=== PATIENT | male | born 1985 | race African-American/Black ===

== ENCOUNTER 2017-11-04 22:24 | Emergency (ER) | payer SELFPAY ==
[2017-11-04] MEDS ORDERED: LISINOPRIL 10 MG TAB ONE (23:13)
--- NOTE | 2017-11-04 23:45 | ER ---
Nurse's Notes [facility] Name: Alexy Rosales Jr Age: 32 yrs Sex: Male : 1985 Arrival Date: 11/04/2017 Time: 22:26 Bed 6 Private MD: Diagnosis: Cough;Subconjunctival hemorrhage;Essential (primary) hypertension Presentation: 11/04 22:36 Presenting complaint: Patient states: he has had a subconjunctival hemorrhage to R eye aa1 x 2 days and was told by someone it was probably from high BP. States he has a hx of HTN and was on medicine but stopped taking it 4 months ago bc he thought he no longer needed it. Transition of care: patient was not received from another setting of care. Onset of symptoms was November 02, 2017. Initial Sepsis Screen: Does the patient meet any 2 criteria? No. Patient's initial sepsis screen is negative. Does the patient have a suspected source of infection? No. Patient's initial sepsis screen is negative. Care prior to arrival: None. 22:36 Method Of Arrival: Ambulatory aa1 22:36 Acuity: SUE 3 aa1 Historical: - Allergies: 22:39 No Known Allergies; aa1 - Home Meds: 22:39 None [Active]; aa1 - PMHx: 22:39 Migraines; Hypertension; vertigo; aa1 - PSHx: 22:39 spinal; aa1 - Immunization history:: Flu vaccine is not up to date. Patient has never been vaccinated. - Social history:: Smoking status: Patient/guardian denies using tobacco. Screenin:30 Abuse screen: Denies threats or abuse. Denies injuries from another. Nutritional aa1 screening: No deficits noted. Tuberculosis screening: No symptoms or risk factors identified. Fall Risk None identified. Assessment: 22:30 General: Appears in no apparent distress. comfortable, obese, Behavior is calm, aa1 cooperative, appropriate for age. Pain: Complains of pain in right eye Pain currently is 6 out of 10 on a pain scale. Neuro: Level of Consciousness is awake, alert, obeys commands, Oriented to person, place, time, situation, Gait is steady, Speech is normal, Facial symmetry appears normal, Pupils are PERRLA, Reports headache. Cardiovascular: Denies chest pain, palpitations, shortness of breath. Respiratory: Airway is patent Respiratory effort is even, unlabored, Respiratory pattern is regular, symmetrical. GI: No signs and/or symptoms were reported involving the gastrointestinal system. : No signs and/or symptoms were reported regarding the genitourinary system. EENT: subconjunctival hemorrhage noted to R eye. Derm: Skin is intact, is healthy with good turgor, Skin is pink, warm \T\ dry. Musculoskeletal: Circulation, motion, and sensation intact. Capillary refill < 3 seconds. 11/05 00:19 Reassessment: Patient appears in no apparent distress at this time. Patient and/or aa1 family updated on plan of care and expected duration. Pain level reassessed. Patient is alert, oriented x 3, equal unlabored respirations, skin warm/dry/pink. Awaiting CT scan and lab results Patient states feeling better. 01:29 Reassessment: Patient appears in no apparent distress at this time. Patient and/or aa1 family updated on plan of care and expected duration. Pain level reassessed. Patient is alert, oriented x 3, equal unlabored respirations, skin warm/dry/pink. Pt taken to CT. 02:53 Reassessment: Patient appears in no apparent distress at this time. Patient is alert, aa1 oriented x 3, equal unlabored respirations, skin warm/dry/pink. Discussed d/c \T\ f/u instructions with pt; denies questions or concerns at this time. Vital Signs: 11/04 22:39 BP 181 / 117; Pulse 106; Resp 18; Temp 97.8; Pulse Ox 98% on R/A; Weight 131.54 kg; aa1 Height 5 ft. 1 in. (154.94 cm); Pain 6/10; 23:36 BP 149 / 99; Pulse 103; Resp 18; Pulse Ox 98% on R/A; lp1 11/05 00:18 BP 146 / 104; Pulse 97; Resp 18; Temp 97.8; Pulse Ox 98% on R/A; aa1 01:45 BP 156 / 100; Pulse 94; Resp 18; Pulse Ox 99% on R/A; aa1 02:53 BP 149 / 99; Pulse 94; Resp 18; Pulse Ox 99% on R/A; Pain 0/10; aa1 11/04 22:39 Body Mass Index 54.79 (131.54 kg, 154.94 cm) aa1 ED Course: 11/04 22:26 Patient arrived in ED. ds1 22:30 Patient has correct armband on for positive identification. Bed in low position. Call aa1 light in reach. Pulse ox on. NIBP on. 22:33 Laure Chahal FNP-C is PHCP. snw 22:33 Roberto Carlos Davis MD is Attending Physician. snw 22:36 Haylee Todd RN is Primary Nurse. aa1 22:38 Triage completed. aa1 22:39 Arm band placed on left wrist. Patient placed in an exam room, on a stretcher. aa1 23:14 X-ray completed. Portable x-ray completed in exam room. Patient tolerated procedure kw well. 23:29 Chest Single View XRAY In Process Unspecified. EDMS 04 00:04 Radiology exam delayed due to lab results not completed at this time. (BUN/Creatinine). cw1 00:19 Inserted saline lock: 20 gauge in right antecubital area, using aseptic technique. mg2 01:45 CT Chest For PE Angio In Process Unspecified. EDMS 02:53 No provider procedures requiring assistance completed. IV discontinued, intact, aa1 bleeding controlled, No redness/swelling at site. Pressure dressing applied. Administered Medications: 11/04 23:17 Drug: Lisinopril 10 mg Route: PO; aa1 11/05 00:08 Follow up: Response: No adverse reaction; Blood pressure is lowered mg2 00:20 Drug: NS 0.9% 1000 ml Route: IV; Rate: 75 ml/hr; Site: right antecubital; mg2 02:55 Follow up: IV Status: Completed infusion aa1 Outcome: 11/04 23:45 Discharge ordered by . snw 11/05 02:37 Discharge ordered by . snw 02:53 Discharged to home ambulatory, with family. aa1 02:53 Condition: good 02:53 Discharge instructions given to patient, family, Instructed on discharge instructions, follow up and referral plans. medication usage, Demonstrated understanding of instructions, follow-up care, medications, Prescriptions given X 2. 02:55 Patient left the ED. aa1 Signatures: Dispatcher [employer] EDMO Haylee Todd RN RN aa1 Laure Chahal FNP-C [employer] MAKING MACHINE OPERATOR-Csnw Joanne Mcallister ds1 Sugar Finn cw1 Serenity Lopez Laura, RN RN lp1 Valentino Ochoa, CARLOS RN mg2
--- NOTE | 2017-11-04 23:45 | EDPHYS ---
Physician Documentation [facility] Name: Alexy Rosales Jr Age: 32 yrs Sex: Male : 1985 Arrival Date: 11/04/2017 Time: 22:26 Bed 6 Private MD: ED Physician Roberto Carlos Davis HPI: 11/05 02:27 This 32 yrs old Black Male presents to ER via Ambulatory with complaints of High Blood snw Pressure. 02:27 The patient has elevated blood pressure and discovered this pt with hx of HTN, took snw Lisinopril for awhile and then thought he was fine without it. No meds x 4 months. Pt states he noted some subconjunctival hemorrhages and was told it was probably from his blood pressure so his family insisted he come be checked.. Onset: The symptoms/episode began/occurred gradually, pt belatedly states that he thought his eyes look that way because he has been coughing since . He has been taking OTC cold medications and this may have contributed somewhat to his HTN. Modifying factors: The symptoms are aggravated by. Associated signs and symptoms: The patient has no apparent associated signs or symptoms. Severity of symptoms: At its worst the blood pressure was 198 mm Hg. Severity of symptoms: At its worst the blood pressure was. It is unknown whether or not the patient has had similar symptoms in the past. The patient has not recently seen a physician. weight gain noted over past months. Historical: - Allergies: 11/04 22:39 No Known Allergies; aa1 - Home Meds: 22:39 None [Active]; aa1 - PMHx: 22:39 Migraines; Hypertension; vertigo; aa1 - PSHx: 22:39 spinal; aa1 - Immunization history:: Flu vaccine is not up to date. Patient has never been vaccinated. - Social history:: Smoking status: Patient/guardian denies using tobacco. ROS: 11/05 02:27 Constitutional: Negative for fever, chills, and weight loss, Eyes: Negative for injury, snw pain, redness, and discharge, subconjunctival hemorrhages ENT: Negative for injury, pain, and discharge, Neck: Negative for injury, pain, and swelling, Cardiovascular: Negative for chest pain, palpitations, and edema, Abdomen/GI: Negative for abdominal pain, nausea, vomiting, diarrhea, and constipation, Back: Negative for injury and pain, : Negative for injury, bleeding, discharge, and swelling, MS/Extremity: Negative for injury and deformity, Skin: Negative for injury, rash, and discoloration, Neuro: Negative for headache, weakness, numbness, tingling, and seizure. Respiratory: Positive for cough, with no reported sputum. Exam: 02:27 Constitutional: This is a well developed, well nourished patient who is awake, alert, snw and in no acute distress. Head/Face: Normocephalic, atraumatic. ENT: Nares patent. No nasal discharge, no septal abnormalities noted. Tympanic membranes are normal and external auditory canals are clear. Oropharynx with no redness, swelling, or masses, exudates, or evidence of obstruction, uvula midline. Mucous membranes moist. Neck: Trachea midline, no thyromegaly or masses palpated, and no cervical lymphadenopathy. Supple, full range of motion without nuchal rigidity, or vertebral point tenderness. No Meningismus. Chest/axilla: Normal chest wall appearance and motion. Nontender with no deformity. No lesions are appreciated. 02:27 Abdomen/GI: Soft, non-tender, with normal bowel sounds. No distension or tympany. No guarding or rebound. No evidence of tenderness throughout. Back: No spinal tenderness. No costovertebral tenderness. Full range of motion. Skin: Warm, dry with normal turgor. Normal color with no rashes, no lesions, and no evidence of cellulitis. MS/ Extremity: Pulses equal, no cyanosis. Neurovascular intact. Full, normal range of motion. Neuro: Awake and alert, GCS 15, oriented to person, place, time, and situation. Cranial nerves II-XII grossly intact. Motor strength 5/5 in all extremities. Sensory grossly intact. Cerebellar exam normal. Normal gait. 02:27 Eyes: Periorbital structures: appear normal, Pupils: no acute changes, Extraocular movements: no acute changes, Conjunctiva: subconjunctival hemorrhage(s), are present in both eyes. 02:27 Cardiovascular: Rate: tachycardic, Rhythm: regular, Heart sounds: normal, Edema: is not appreciated. 02:27 Respiratory: Exam negative for acute changes. Vital Signs: 11/04 22:39 BP 181 / 117; Pulse 106; Resp 18; Temp 97.8; Pulse Ox 98% on R/A; Weight 131.54 kg; aa1 Height 5 ft. 1 in. (154.94 cm); Pain 6/10; 23:36 BP 149 / 99; Pulse 103; Resp 18; Pulse Ox 98% on R/A; lp1 11/05 00:18 BP 146 / 104; Pulse 97; Resp 18; Temp 97.8; Pulse Ox 98% on R/A; aa1 01:45 BP 156 / 100; Pulse 94; Resp 18; Pulse Ox 99% on R/A; aa1 02:53 BP 149 / 99; Pulse 94; Resp 18; Pulse Ox 99% on R/A; Pain 0/10; aa1 11/04 22:39 Body Mass Index 54.79 (131.54 kg, 154.94 cm) aa1 MDM: 11/04 22:42 Patient medically screened. snw 11/05 02:34 Data reviewed: vital signs, nurses notes. Data interpreted: Pulse oximetry: on room air snw is 98 %. Interpretation: acceptable. Counseling: I had a detailed discussion with the patient and/or guardian regarding: the historical points, exam findings, and any diagnostic results supporting the discharge/admit diagnosis, the presence of at least one elevated blood pressure reading (>120/80) during this emergency department visit, lab results, radiology results, the need for further work-up and treatment in the hospital, to return to the emergency department if symptoms worsen or persist or if there are any questions or concerns that arise at home. Response to treatment: the patient's symptoms have mildly improved after treatment. Special discussion: I have referred the patient to see his PCP for further evaluation of high blood pressure. Based on the history and exam findings, there is no indication for further emergent testing or inpatient evaluation. I discussed with the patient/guardian the need to see the primary care provider for further evaluation of the symptoms. ED course: Pt's xray from 2014 noted possible pneumonia - xray today shows moderately increased body habitus. Area of previous pneumonia looks quite similar, will CT to make sure there are no masses, consolidations. 11/05 00:00 Order name: CBC with Diff; Complete Time: 01:06 snw 11/05 00:00 Order name: Chem 7; Complete Time: 01:21 snw 11/04 22:49 Order name: Chest Single View XRAY snw 11/05 00:00 Order name: CT Chest For PE Angio snw 11/04 23:28 Order name: Recheck B/P; Complete Time: 23:37 snw Administered Medications: 11/04 23:17 Drug: Lisinopril 10 mg Route: PO; aa1 11/05 00:08 Follow up: Response: No adverse reaction; Blood pressure is lowered mg2 00:20 Drug: NS 0.9% 1000 ml Route: IV; Rate: 75 ml/hr; Site: right antecubital; mg2 02:55 Follow up: IV Status: Completed infusion aa1 Disposition: 03:26 Co-signature as Attending Physician, Roberto Carlos Davis MD. rn Disposition: 11/05/17 02:37 Discharged to Home. Impression: Cough, Subconjunctival hemorrhage, Essential (primary) hypertension. - Condition is Stable. - Discharge Instructions: Hypertension, Heart Disease Prevention, Cool Mist Vaporizers, Cough, Adult, [id number], How to Take Your Blood Pressure, [id number], DASH Eating Plan, Managing Your High Blood Pressure. - Prescriptions for Lisinopril 10 mg Oral Tablet - take 1 tablet by ORAL route once daily; 20 tablet. Albuterol Sulfate 90 mcg/actuation - inhale 1-2 puff by INHALATION route every 4-6 hours; 1 Inhaler. - Work release form, Medication Reconciliation Form, Thank You Letter, Antibiotic Education, Prescription Opioid Use form. - Follow up: Private Physician; When: 2 - 3 days; Reason: Recheck today's complaints, Continuance of care, Re-evaluation by your physician. Follow up: Emergency Department; When: As needed; Reason: Worsening of condition. Signatures: Dispatcher [employer] Haylee Hidalgo RN RN aa1 Laure Chahal, SUPERVISOR CONTINGENTS-C SUPERVISOR CONTINGENTS-Csnw Roberto Carlos Davis MD MD rn Gardose, Michele, RN RN mg2
[2017-11-05] MEDS ORDERED: NA CHLORIDE 0.9% 1,000 ML ONE (00:09)
[2017-11-05 00:42] LABS: Absolute Lymphocytes (CBC) 2.6 K/uL (0.7-4.9); Absolute Monocytes 0.6 K/uL (0.1-1.3); Basophils % 0.7 % (0-1.3); Eosinophils % 1.4 % (0-4.4); Hematocrit 47.2 % (39.6-49.0); Lymphocytes % 30.5 % (15.3-44.8); MCH 28.6 pg (27.0-35.0); MPV 9.1 fL (7.6-11.3); Monocytes % 7.4 % (3.3-12.3); RBC Red Blood Cell Count 5.48 M/uL (4.33-5.43)
[2017-11-05 01:20] LABS: BUN Blood Urea Nitrogen 15 mg/dL (6-20); Bicarbonate 26 mEq/L (21-31); Glucose Level 108 mg/dL (65-120); Potassium 3.7 mEq/L (3.6-5.0); Sodium Level 139 mEq/L (135-145)
[2017-11-05 02:59] VITALS: TEMP 97.8
[2017-11-05 03:02] VITALS: O2SAT 99
[2017-11-05 03:04] VITALS: BP 149/99
--- NOTE | 2017-11-05 08:22 | RAD REPORT ---
EXAM DESCRIPTION: RAD - Chest Single View - 11/04/2017 11:29 pm CLINICAL HISTORY: Hypertension, shortness of breath COMPARISON: August 2014 TECHNIQUE: AP portable chest image was obtained 2303 hours . FINDINGS: Lungs are clear. Heart and vasculature are normal range for shallow inspiration portable e xam. No measurable pleural effusion and no pneumothorax. No gross bony abnormality seen. No acute aor tic findings suspected. IMPRESSION: No acute cardiopulmonary process. No significant interval change.
--- NOTE | 2017-11-05 08:37 | RAD REPORT ---
EXAM DESCRIPTION: CT - Chest For Pe Angio - 11/05/2017 7:01 am CLINICAL HISTORY: Cough and congestion, hypertension A preliminary written report was provided at the time of the study, and the report was reviewed prio r to final dictation. COMPARISON: Chest films same date TECHNIQUE: Dynamically enhanced 3 mm thick images of the chest were obtained during administration o f approximately 150mL Isovue 370 IV contrast. Coronal and oblique reconstruction images were generate d and reviewed. Exam utilizes a protocol to evaluate the pulmonary arterial tree. All CT scans are performed using dose optimization technique as appropriate and may include automated exposure control or mA/KV adjustment according to patient size. FINDINGS: No pulmonary emboli are identified. Motion limits the far peripheral branches. Probability of embolic event is felt to be very low. The aorta as imaged shows no acute or suspicious finding. No pericardial thickening or effusion. No infiltrate or mass in the lung parenchyma. No pleural effusion or pleural thickening. No mediastinal or hilar suspicious masses. No chest wall masses or abnormal axillary lymphadenopathy. IMPRESSION: No pulmonary emboli identified. No other significant or suspicious findings.
== END 2017-11-05 02:55 | disposition home or self-care (01) ==
LOC: ER 22:24
DX: H11.30 Conjunctival hemorrhage, unspecified eye (principal); I10 Essential (primary) hypertension
CPT/HCPCS: 36415; 71045; 71275; 80048; 85025; 96360; 96361; 99284; J7030; Q9967

== ENCOUNTER 2018-11-29 22:48 | Emergency (ER) | payer SELFPAY ==
--- OUTSIDE RECORDS SUMMARY | 2018-11-29 22:51 | XMS REPORT | Continuity of Care Document ---
:1985 Author Organization Interface Problems Problem Status Onset Classification Date Comments Source Date Reported FALL Active [address] CERVICAL Active [facility] STENOSIS [address] [place] [address] Migraines Resolved Problem 06/25/2016 [facility] [place] Morbid Active Problem 06/25/2016 [facility] obesity [place] Medications Medication Details Route Status Patient Ordering Order Source Instructions Provider Date Docusate Sodium 100 mg=1 cap, Active [facility] 100 MG Oral PO, Q12H, # 30 2016 Medical Capsule cap, 0 Refill(s) [place] cyclobenzaprine 10 mg=1 tab, PO, Active [facility] 10 mg oral tablet TID, PRN Spasm, 2015 Medical # 30 tab, 0 Center Refill(s) ceFAZolin + 2 gm, Route: No Longer [place] sodium chloride IVPB, Drug form: Active 2015 Medical 0.9% INJ 100 mL PDR/INJ, ABXQ8H, Center Start date: 04/19/16 16:00:00 CDT, Duration: 1 day, Stop date: 04/20/16 8:00:00 CDTNotes: (Same As: Ancef, Kefzol) MEDICATION WASTE Product Size: 1000 mg Product Wasted: ___ mg Ancef 2 gm, Route: Inactive [facility] IVPB, ABXQ8H, 2016 Medical Dosing Weight Center 116.818, kg, Start date: 04/19/16 12:00:00 CDT, Duration: 1 day, Stop date: 04/20/16 4:00:00 CDT Flexeril 10 mg, 1 tab, No Longer [facility] Route: PO, Drug Active 2015 Medical form: TAB, TID, Center Dosing Weight 116.818, kg, PRN Spasm, Start date: 04/19/16 11:11:00 CDT, Duration: 30 day, Stop date: 05/19/16 11:10:00 CSTNotes: (Same As: Flexeril) sugammadex 500 mg, 5 mL, Inactive [facility] Route: IV, Drug 2016 Medical form: SOLN, Center ONCE, Start date: 04/19/16 10:56:00 CDT, Stop date: 04/19/16 10:56:00 CDTNotes: (Same as: [place]) Ondansetron 4 mg, Route: Inactive [facility] IVP, ONCE, 2016 Medical Dosing Weight Center 116.818, kg, PRN Nausea & Vomiting, Start date: 04/19/16 9:20:00 CDT Naloxone 0.4 mg, Route: Inactive [facility] IVP, Q2MIN, 2016 Medical Dosing Weight Center 116.818, kg, PRN Narcotic Reversal, Start date: 04/19/16 9:20:00 CDT, Duration: 8 doses or times, Stop date: Limited # of times Oxycodone 5 mg, Route: PO, Inactive [facility] Drug form: TAB, 2016 Medical Q4H, Dosing Center Weight 116.818, kg, PRN Pain Score 4-6, Start date: 04/19/16 9:20:00 CDT, Duration: 30 day, Stop date: 05/19/16 9:19:00 [employer] Hydromorphone 0.5 mg, Route: Inactive [facility] IVP, Q5Min, 2016 Medical Dosing Weight Center 116.818, kg, PRN Pain Score 7-10, Start date: 04/19/16 9:20:00 CDT, Duration: 4 doses or times, Stop date: Limited # of times Flumazenil 0.2 mg, Route: Inactive [facility] IVP, PRN, Dosing 2016 Medical Weight 116.818, Center kg, PRN Benzodiazepine Reversal, Initial dose, Start date: 04/19/16 9:20:00 CDT, Duration: 30 day, Stop date: 05/19/16 8:19:00 [employer] influenza virus 0.5 mL, Route: Inactive [facility] vaccine, IM, Drug Form: 2016 [facility] inactivated SUSP, Daily, Center Start date: 04/19/16 9:00:00 CDT, Duration: 1 doses or times, Stop date: 04/19/16 9:00:00 CDTNotes: (Same as: Fluzone Quadrivalent, Fluarix Quadrivalent) For 3 years of age and older (0.5 mL IM) Shake well before use Ancef 3 gm, Route: Inactive [place] IVP, ONCE, 2016 Medical Dosing Weight Center 116.818, kg, Start date: 04/19/16 8:35:00 CDT, Stop date: 04/19/16 8:35:00 CDT Saline Flush 0.9% 10 ml, Route: No Longer [place] IVP, Drug Form: Active 2015 Medical INJ, Dosing Center Weight 116.818, kg, Q12H, Start date: 04/18/16 9:00:00 CDT, Duration: 30 day, Stop date: 05/17/16 21:00:00 CSTNotes: Same as: BD Posiflush Sterile sennosides, MCFP 8.6 mg, 1 tab, No Longer [place] Route: PO, Drug Active 2015 Medical Form: TAB, Center Dosing Weight 116.818, kg, Q12H, Start date: 04/18/16 9:00:00 CDT, Duration: 30 day, Stop date: 05/17/16 21:00:00 CSTNotes: (Same as: Senokot) Docusate 100 mg, 1 cap, No Longer [place] Route: PO, Drug Active 2015 Medical form: CAP, Q12H, Center Dosing Weight 116.818, kg, Start date: 04/18/16 9:00:00 CDT, Duration: 30 day, Stop date: 05/17/16 21:00:00 CSTNotes: (Same as: Colace) (Do Not Crush) Dilaudid 1 mg, 0.5 mL, Inactive [place] Route: IVP, Drug 2015 Medical form: INJ, ONCE, Center Dosing Weight 116.818, kg, Priority: STAT, Start date: 04/18/16 5:55:00 CDT, Stop date: 04/18/16 5:55:00 CDTNotes: (Same as: Dilaudid) Hydromorphone 1 mg, Route: Inactive [place] IVP, ONCE, 2015 Medical Dosing Weight Center 116.818, kg, Priority: STAT, Start date: 04/18/16 4:15:00 CDT, Stop date: 04/18/16 4:15:00 CDT Saline Flush 0.9% 10 ml, Route: No Longer [place] IVP, Drug Form: Active 2016 Medical INJ, Dosing Center Weight 116.818, kg, PRN, PRN Line Flush, Start date: 04/18/16 2:57:00 CDT, Duration: 30 day, Stop date: 05/18/16 1:56:00 CSTNotes: Same as: BD Posiflush Sterile Ondansetron 4 mg, 2 mL, No Longer [place] Route: IVP, Drug Active 2015 Medical form: INJ, Q8H, Center Dosing Weight 116.818, kg, PRN Nausea & Vomiting, Start date: 04/18/16 2:57:00 CDT, Duration: 30 day, Stop date: 05/18/16 2:56:00 CSTNotes: (Same as: Zacarias) MEDICATION WASTE Product Size: 4 mg Product Wasted: ___ mg Acetaminophen 325 1 tab, Route: No Longer [place] MG / Hydrocodone PO, Drug Form: Active 2015 Medical Bitartrate 10 MG TAB, Dosing Center Oral Tablet Weight 116.818, kg, Q4H, PRN Pain Score 4-6, Start date: 04/18/16 2:57:00 CDT, Duration: 30 day, Stop date: 05/18/16 2:56:00 CSTNotes: Do not exceed 4gm/day of acetaminophen. (Same as: [place] 325/10) Acetaminophen 650 mg, 2 tab, No Longer [place] Route: PO, Drug Active 2015 Medical form: TAB, Q4H, Center Dosing Weight 116.818, kg, PRN Pain 1-3/Temp > 99.5 F, Start date: 04/18/16 2:57:00 CDT, Duration: 30 day, Stop date: 05/18/16 2:56:00 CSTNotes: Do not exceed 4 gm/day. (Same as: Tylenol) Morphine 2 mg, 1 mL, No Longer [facility] Route: IVP, Drug Active 2015 Medical form: INJ, Q1H, Center Dosing Weight 116.818, kg, PRN Pain Score 7-10, Start date: 04/18/16 2:57:00 CDT, Duration: 30 day, Stop date: 05/18/16 1:56:00 CSTNotes: (Same as:MORPhine Sulfate) Bisacodyl 10 mg, 1 supp, No Longer [facility] Route: AL, Drug Active 2015 Medical form: SUPP, Center Daily, Dosing Weight 116.818, kg, PRN Constipation, Start date: 04/18/16 2:57:00 CDT, Duration: 30 day, Stop date: 05/18/16 2:56:00 CSTNotes: (Same As: Dulcolax, Bisco-Lax) Ativan 1 mg, 0.5 mL, Inactive [facility] Route: IVP, Drug 2015 Medical form: INJ, ONCE, Center Dosing Weight 116.818, kg, Priority: STAT, Start date: 04/18/16 1:37:00 CDT, Stop date: 04/18/16 1:37:00 CDTNotes: (Same as: Ativan) Zofran 4 mg, 2 mL, Inactive [facility] Route: IVP, Drug 2015 Medical form: INJ, ONCE, Center Dosing Weight 116.818, kg, Priority: STAT, Start date: 04/18/16 1:37:00 CDT, Stop date: 04/18/16 1:37:00 CDTNotes: (Same as: Zofran) MEDICATION WASTE Product Size: 4 mg Product Wasted: ___ mg Dilaudid 1 mg, Route: Inactive [facility] IVP, ONCE, 2015 Medical Dosing Weight Center 116.818, kg, Priority: STAT, Start date: 04/18/16 0:05:00 CDT, Stop date: 04/18/16 0:05:00 CDT Allergies, Adverse Reactions, Alerts Substance Category Reaction Severity Reaction Status Date Comments Source type Reported Immunizations Immunization Date Given Site Status Last Updated Comments Source influenza virus 04/19/2016 Not Given [facility] vaccineJose inactivated [facility] Results Order Name Results Value Reference Date Interpretation Comments Source Range Spine Spine EXAM: XR CERVICAL SPINE 2 VIEWS 06/22 - OPID cervical 2 cervical - Jose or 3 view or 3 view DX DX DATE: 06/22/2016 2:19 PM [employer] Read by: Nicholas Garcia MD Dictated Date/time: 06/22/16 15:55 Electronically Signed by: Nicholas Garcia MD 06/22/16 15:56 FINAL REPORT INDICATION: Pain with radiculopathy COMPARISON: None TECHNIQUE: AP and lateral radiographs of the cervical spine show from the skull base through C6. DISCUSSION: Vertebral body heights, disk heights and alignment are overall preserved. Small osteophytes anteriorly at C4-C5. Left laminotomy changes are noted at C4 and C5 without complication identifie d. No prevertebral or paraspinous soft tissue abnormality is identified. IMPRESSION: 1. Minimal degenerative disc disease at C4-C5. 2. Left laminotomy changes at C4 and C5 without complication identified. BLOOD BANK Antibody Negative 04/19 [facility] RESULTS Scr [facility] (04/19/16 3:48 AM) [place] BLOOD BANK ABO/Rh O POS 04/19 [facility] RESULTS /2015 [facility] ELECTROLYTE AGAP 11.8 meq/L 10.0 - 04/18 [facility] S 20.0 [facility] ELECTROLYTE eGFR 138 04/18 Result Comment: The eGFR is calculated using the CKD-EPI formula. In most young, healthy individuals the eGFR will be > 90 mL/min/1.73m2. The eGFR declines with age. An eGFR of 60-89 may be normal in [facility] mL/min/1.73 /2016 some populations, particularly the elderly, for whom the CKD-EPI formula has not been extensively validated. Use of the eGFR is not recommended in the following populations: [address] Individuals with unstable creatinine concentrations, including patients and those with serious co-morbid conditions. Patients with extremes in muscle mass or diet. The data above are obtained from the National Kidney Disease Education Program (NKDEP) which additionally recommends that when the eGFR is used in patients with extremes of body mass index for purposes of drug dosing, the eGFR should be multiplied by the estimated BMI. ELECTROLYTE Glucose Lvl 114 mg/dL 70 - 99 04/18 [facility] S /2015 [facility] ELECTROLYTE Creatinine 0.79 mg/dL 0.50 - 04/18 [facility] [place] S Lvl 1.40 /2015 [facility] ELECTROLYTE BUN 7 mg/dL 7 - 22 04/18 [facility] S /2015 [facility] ELECTROLYTE Potassium 3.8 meq/L 3.5 - 5.1 04/18 [facility] S Lvl /2015 [facility] ELECTROLYTE Sodium Lvl 139 meq/L 135 - 145 04/18 [facility] S /2015 [facility] ELECTROLYTE CO2 26 meq/L 24 - 32 04/18 [facility] S /2015 [facility] ELECTROLYTE Chloride Lvl 105 meq/L 95 - 109 04/18 [facility] S /2015 [facility] ELECTROLYTE Calcium Lvl 8.3 mg/dL 8.5 - 10.5 04/18 [facility] S /2015 [facility] HEMATOLOGY Lymphocytes 1.0 K/CMM 1.0 - 5.5 04/18 # /2015 [facility] HEMATOLOGY Monocytes # 0.7 K/CMM 0.0 - 0.8 04/18 [facility] HEMATOLOGY Eosinophils 0.2 % 0.0 - 4.0 04/18 [facility] HEMATOLOGY Lymphocytes 9.9 % 20.0 - 04/18 [place] 40.0 /2016 [facility] HEMATOLOGY Monocytes 6.3 % 2.0 - 12.0 04/18 [facility] HEMATOLOGY Basophils 0.3 % 0.0 - 1.0 04/18 [facility] HEMATOLOGY Segs-Bands # 8.8 K/CMM 1.5 - 8.1 04/18 [facility] HEMATOLOGY Segs 83.3 % 45.0 - 04/18 [place] 75.0 /2016 [facility] HEMATOLOGY MPV 9.5 fL 7.4 - 10.4 04/18 [facility] HEMATOLOGY WBC 10.6 K/CMM 3.7 - 10.4 04/18 [facility] HEMATOLOGY RBC 5.21 M/CMM 4.70 - 04/18 [place] 6.10 [facility] HEMATOLOGY Hgb 15.3 g/dL 14.0 - 04/18 [place] 18.0 /2016 [facility] HEMATOLOGY MCH 29.3 pg 27.0 - 04/18 [place] 31.0 /2016 [facility] HEMATOLOGY RDW 13.2 % 11.5 - 04/18 [place] 14.5 /2016 [facility] HEMATOLOGY Platelet 202 K/CMM 133 - 450 04/18 [facility] HEMATOLOGY Hct 44.2 % 42.0 - 04/18 [place] 54.0 /2016 [facility] HEMATOLOGY MCV 84.7 fL 80.0 - 04/18 [place] 94.0 /2015 [facility] HEMATOLOGY MCHC 34.6 g/dL 32.0 - 04/18 [place] 36.0 /2015 [facility] HEMATOLOGY INR 0.99 0.85 - 04/18 [place] 1.17 /2015 [facility] HEMATOLOGY PTT 26.3 s 22.9 - 04/18 [place] 35.8 /2015 [facility] HEMATOLOGY PT 13.3 s 12.0 - 04/18 [place] 14.7 /2015 [facility] Brain-Outsi Brain-Outsid EXAM: CT HEAD WITHOUT CONTRAST 04/18 [facility] de Consult e Consult CT - [facility] CT Center DATE: Study was performed at outside hospital on 04/17/2016 at 2015 hours and submitted for 2nd interpretation on 04/18/2016 1:44 AM CDT Read by: Moises Coelho MD Dictated Date/time: 04/18/16 09:50 Electronically Signed by: Moises Coelho MD 04/18/16 09:51 FINAL REPORT INDICATION: 30 years old Male patient with provided history of trauma. TECHNIQUE: Outside hospital noncontrast CT Scan of the head was submitted for 2nd opinion/interpretation. Multiple axial images were obtained through the head from vertex to the skull base. Axial bone a lgorithm reconstruction images were provided. COMPARISON: None. FINDINGS: No definite evidence of cerebral edema, mass effect, midline shift is seen. There is no intracranial hemorrhage. Ventricles are normal in size and configuration. No pathological extra- axial fluid collection is seen. Basal cisterns are well preserved. There is no evidence of downward herniation. Calvarium is intact. Visualized paranasal sinuses are clear. Mastoid air cells are well aerated. Visualized orbits appear grossly unremarkable. IMPRESSION: 1. No acute intracranial abnormality. Outside hospital report is available. Findings are in agreement with outside hospital report. These findings are in agreement with preliminary report made by consumer attorney president finance company: Creator: Judy Salgado Date: Apr 18, 2016 05:12:33 Subject: No acute intracranial abnormality Spine-Outsi Spine-Outsid EXAM: CT THORACIC SPINE WITHOUT CONTRAST 04/18 - [facility] de Consult e Consult CT - Medical CT EXAM: CT LUMBAR SPINE WITHOUT CONTRAST This report was dictated by a [employer]/Fellow. I have personally reviewed the images as Center well as the Resident's interpretation and agree with the findings. Read by: Judy Salgado MD Resident: Judy Salgado MD Dictated Date/time: 04/18/16 02:30 DATE: 04/18/2016 1:44 AM CDT performed 04/17/2016 at 2018 hours Electronically Signed by: Jared Rojo MD 04/18/16 06 :23 FINAL REPORT INDICATION: Trauma. COMPARISON: None TECHNIQUE: Outside CT images of the lumbar and thoracic spine obtained at [facility] were uploaded for 2nd opinion interpretation. Axial , sagittal and coronal images are included. FINDINGS: No fracture, malalignment or other acute bony abnormality is identified. There are posterior disc osteophyte complexes which cause bony narrowing of the spinal canal most prominent at T6-T7, T 7-T8 and T8-T9. There is mild facet arthropathy in the lumbar spine. No soft tissue abnormality is identified. IMPRESSION: 1. No acute fracture or malalignment. 2. Posterior disc osteophyte complexes which cause narrowing the spinal canal most prominent from T6 through T9. Spine-Outsi Spine-Outsid EXAM: CT THORACIC SPINE WITHOUT CONTRAST 04/18 - [facility] Consult e Consult CT - Medical CT EXAM: CT LUMBAR SPINE WITHOUT CONTRAST This report was dictated by a [employer]/Fellow. I have personally reviewed the images as Center well as the Resident's interpretation and agree with the findings. Read by: Judy Salgado MD Resident: Judy Salgado MD Dictated Date/time: 04/18/16 02:30 DATE: 04/18/2016 1:44 AM CDT performed 04/17/2016 at 2018 hours Electronically Signed by: Jared Rojo MD 04/18/16 06 :23 FINAL REPORT INDICATION: Trauma. COMPARISON: None TECHNIQUE: Outside CT images of the lumbar and thoracic spine obtained at [facility] were uploaded for 2nd opinion interpretation. Axial , sagittal and coronal images are included. FINDINGS: No fracture, malalignment or other acute bony abnormality is identified. There are posterior disc osteophyte complexes which cause bony narrowing of the spinal canal most prominent at T6-T7, T 7-T8 and T8-T9. There is mild facet arthropathy in the lumbar spine. No soft tissue abnormality is identified. IMPRESSION: 1. No acute fracture or malalignment. 2. Posterior disc osteophyte complexes which cause narrowing the spinal canal most prominent from T6 through T9. Spine-Outsi Spine-Outsid EXAM: CT CERVICAL SPINE WITHOUT CONTRAST 04/18 [facility] de Consult e Consult CT /2015 - Medical CT This report was dictated by a [employer]/Fellow. I have personally reviewed the images as Center well as the Resident's interpretation and agree with the findings. DATE: 04/18/2016 1:43 AM CDT performed 04/17/2016 at 2015 hours. Read by: Judy Salgado MD Resident: Judy Salgado MD Dictated Date/time: 04/18/16 02:23 Electronically Signed by: Jared Rojo MD 04/18/16 06:18 FINAL REPORT INDICATION: Trauma COMPARISON: None TECHNIQUE: Outside CT images of the cervical spine obtained at [facility] were uploaded for 2nd opinion interpretation. Axial, sagittal , and coronal images are included. FINDINGS: The spine is imaged from the skull base to the level of T2. No acute fracture or malalignment is identified. There is ossification within the posterior longitudinal ligament at C4 and C5 which causes narrowing of the spinal canal most prominent at C5. No soft tissue abnormality is identified. IMPRESSION: 1. No acute fracture or malalignment of the cervical spine. 2. Narrowing of the spinal canal at C5 secondary to ossification within the posterior longitudinal ligament. 3. No significant change from the outside report. Spine Spine EXAM: MRI THORACIC SPINE WITHOUT CONTRAST 04/18 - [facility] Thoracic wo Thoracic wo /2015 - Medical contrast contrast MRI This report was dictated by a [employer]/Fellow. I have personally reviewed the images as Center MRI well as the Resident's interpretation and agree with the findings. DATE: 04/18/2016 at 0329 hours Read by: Sofia Gotti MD Resident: Sofia Gotti MD Dictated Date/time: 04/18/16 11:00 Electronically Signed by: Rahul Snow MD 04/18/16 18:56 FINAL REPORT INDICATION: Pain post trauma, extremity weakness and numbness. COMPARISON: CT 04/17/2016 TECHNIQUE: Multiplanar, multisequence noncontrast MR imaging of the thoracic spine. IV contrast: None. FINDINGS: There is congenital narrowing of the thoracic spine. Large posterior disc osteophytes protrude away from the endplates at T6-T7, T7-T8, T8-T9, and T9-T10 that contact and displace the spinal cord and re sult in effacement of the ventral thecal sac. Hyperintense signal is predominantly seen within the spinal cord at T8-T9 on T1/T2 weighted sequences traversing 3.5 cm, compatible with cord edema and areas of cord contusion. Multiple other areas of linear high T2 signal within the cord may be artifactual. The study is low resolution as a result of a large [id number]. The paraspinal soft tissues are normal. The bladder is catheterized. IMPRESSION: 1. Cord compression with probable cord contusion, greatest at T8-T9 in the region of spondylosis. 2. Acquired on congenital spinal canal stenosis. Spine Spine EXAM: MRI CERVICAL SPINE WITHOUT CONTRAST 04/18 - [facility] wo cervical - Medical contrast contrast MRI This report was dictated by a [employer]/Fellow. I have personally reviewed the images as Center MRI well as the Resident's interpretation and agree with the findings. DATE: 04/18/2016 12:35 AM CDT Read by: Sofia Gotti MD Resident: Sofia Gotti MD Dictated Date/time: 04/18/16 09:20 Electronically Signed by: Rahul Snow MD 04/18/16 18:58 FINAL REPORT INDICATION: Pain Post Trauma COMPARISON: CT C-spine 04/17/2016 TECHNIQUE: Multiplanar, multisequence noncontrast MR imaging of the cervical spine. IV contrast: None. FINDINGS: The cervical spine is congenitally narrowed from C3 to C6. There is no cord compression or myelomalacia. The vertebrae are normal in shape, signal intensity, and alignment. No neuroforaminal stenosis is seen. The disc heights are maintained. There is no disc bulge. The paraspinal soft tissues are normal. IMPRESSION: 1. Normal alignment of the cervical spine without evidence of injury. 2. Congenital spinal canal stenosis from C3 to C6. Vital Signs Vital Sign Value Date Comments Source Systolic (mm Hg) 152 04/20/2016 [facility] Diastolic (mm Hg) 90 04/20/2016 [facility] Heart Rate 86 04/20/2016 [facility] Respitory Rate 18 04/20/2016 [facility] Respitory Rate 18 04/20/2016 [facility] Systolic (mm Hg) 152 04/20/2016 [facility] Diastolic (mm Hg) 88 04/20/2016 [facility] Heart Rate 98 04/20/2016 [facility] Temperature Oral (F) 98.7 F 04/20/2016 [facility] Systolic (mm Hg) 121 04/20/2016 [facility] Diastolic (mm Hg) 78 04/20/2016 [facility] Respitory Rate 18 04/20/2016 [facility] Temperature Oral (F) 99.0 F 04/20/2016 [facility] Heart Rate 102 04/20/2016 [facility] Temperature Oral (F) 98.5 F 04/20/2016 [facility] Height 152.4 cm 04/18/2016 [facility] BMI Calculated 50.3 04/18/2016 [facility] Weight 116.818 04/18/2016 [facility] Encounters Location Location Encounter Encounter Reason Attending ADM DC Status Source Details Type Number For Provider Date Date Visit [facility] [id number] Noah 04/18 04/20 [facility] Jose 0 [place] Jr /2015 [facility] Outpatient [id number] NOAH [facility]/04 [facility] [id number] [facility] 06/22 Active [facility] 1 [facility] Outpt Diag [id number] Noah 06/22 06/23 [facility] [place] Procedures Procedure Code Date Perfomer Comments Source
--- OUTSIDE RECORDS SUMMARY | 2018-11-29 22:52 | XMS REPORT | Summary of Care ---
:1985 Author Organization [facility] Outpatient Imaging [facility] Address [address] [place] [address]- Encounter HQ Encntr_alias(FIN) [id number] Date(s): 06/22/16 - 06/22/16 [facility] [address] [address]- [phone] Discharge Disposition: Home or Self Care Attending Physician: Noah Kelley MD Vital Signs No data available for this section Problem List Condition Effective Dates Status Health Status Informant Migraines(Confirmed) Resolved Morbid obesity(Confirmed) Active Allergies, Adverse Reactions, Alerts Substance Reaction Severity Status NKDA Active Medications No data available for this section Results No data available for this section Immunizations Not Given Vaccine Date Status Refusal Reason influenza virus vaccine, inactivated 04/19/16 Not Given Patient Refuses Procedures No data available for this section Social History Social History Type Response Smoking Status Never smoker; Ready to change: No; Concerns about tobacco use in household: No; Exposure to Tobacco Smoke None; Cigarette Smoking Last 365 Days No; Reg Smoking Cessation Counseling No Assessment and Plan No data available for this section
--- OUTSIDE RECORDS SUMMARY | 2018-11-29 22:52 | XMS REPORT | Summary of Care ---
:1985 Author Organization [facility] Address [address] [place] [id number] Encounter HQ Chazr_baldemar(FIN) [id number] Date(s): 04/17/16 - 04/20/[address] Professional Services provided by [facility] [place] [address]- Discharge Disposition: Home or Self Care Attending Physician: Noah Kelley MD Admitting Physician: Noah Kelley MD Vital Signs Most recent to oldest 1 2 3 [Reference Range]: Height 152.4 cm (04/17/16 11:29 PM) Temperature Oral 98.7 DegF 99.0 DegF 98.5 DegF [96.4-99.1 DegF] (04/20/16 3:17 AM) (04/19/16 11:29 PM) (04/19/16 7:08 PM) Blood Pressure 152/90 mmHg 152/88 mmHg 121/78 mmHg [90-140/60-90 mmHg] *HI* *HI* (04/19/16 11:29 PM) (04/20/16 7:11 AM) (04/20/16 3:17 AM) Respiratory Rate [14-20 18 BRMIN 18 BRMIN 18 BRMIN BRMIN] (04/20/16 7:11 AM) (04/20/16 3:17 AM) (04/19/16 11:29 PM) Peripheral Pulse Rate 86 bpm 98 bpm 102 bpm [60-100 bpm] (04/20/16 7:11 AM) (04/20/16 3:17 AM) *HI* (04/19/16 11:29 PM) Weight 116.818 kg (04/17/16 11:29 PM) Body Mass Index 50.3 m2 (04/17/16 11:29 PM) Problem List Condition Effective Dates Status Health Status Informant Migraines(Confirmed) Resolved Allergies, Adverse Reactions, Alerts Substance Reaction Severity Status NKDA Active Medications acetaminophen 650 mg, 2 tab, Route: PO, Drug form: TAB, Q4H, Dosing Weight 116.818, kg, PRN Pain 1-3/Temp > 99.5 F, Start date: 04/18/16 2:57:00 CDT, Duration: 30 day, Stop date: 05/18/16 2:56:00 ORACLE APPLICATION ARCHITECT Notes: Do not exceed 4 gm/day. (Same as: Tylenol) Start Date: 04/18/16 Stop Date: 04/20/16 Status: Discontinuedacetaminophen-hydrocodone 325 mg-10 mg oral tablet 1 tab, Route: PO, Drug Form: TAB, Dosing Weight 116.818, kg, Q4H, PRN Pain Score 4-6, Start date: 04/18/16 2:57:00 CDT, Duration: 30 day, Stop date: 2:56:00 ORACLE APPLICATION ARCHITECT Notes: Do not exceed 4gm/day of acetaminophen. (Same as: [place] 325/10) Start Date: 04/18/16 Stop Date: 04/20/16 Status: DiscontinuedAncef 3 gm, Route: IVP, ONCE, Dosing Weight 116.818, kg, Start date: 04/19/16 8:35:00 CDT, Stop date: 04/19/16 8:35:00 CDT Start Date: 04/19/16 Stop Date: 04/19/16 Status: CompletedAncef 2 gm, Route: IVPB, ABXQ8H, Dosing Weight 116.818, kg, Start date: 04/19/16 12:00 :00 CDT, Duration: 1day, Stop date: 04/20/16 4:00:00 CDT Start Date: 04/19/16 Stop Date: 04/19/16 Status: DeletedANES flumazenil 0.2 mg, Route: IVP, PRN, Dosing Weight 116.818, kg, PRN Benzodiazepine Reversal , Initial dose, Startdate: 04/19/16 9:20:00 CDT, Duration: 30 day, Stop date: 8:19:00 [employer]ACLE APPLICATION ARCHITECT Start Date: 04/19/16 Stop Date: 04/19/16 Status: DiscontinuedANES HYDROmorphone 0.5 mg, Route: IVP, Q5Min, Dosing Weight 116.818, kg, PRN Pain Score 7-10, Start date: 04/19/16 9:20:00 CDT, Duration: 4 doses or times, Stop date: Limited # of times Start Date: 04/19/16 Stop Date: 04/19/16 Status: DiscontinuedANES naloxone 0.4 mg, Route: IVP, Q2MIN, Dosing Weight 116.818, kg, PRN Narcotic Reversal, Start date: 04/19/16 9:20:00 CDT, Duration: 8 doses or times, Stop date: Limited # of times Start Date: 04/19/16 Stop Date: 04/19/16 Status: DiscontinuedANES ondansetron 4 mg, Route: IVP, ONCE, Dosing Weight 116.818, kg, PRN Nausea & Vomiting, Start date: 04/19/16 9:20:00 CDT Start Date: 04/19/16 Stop Date: 04/19/16 Status: DiscontinuedANES oxyCODONE 5 mg, Route: PO, Drug form: TAB, Q4H, Dosing Weight 116.818, kg, PRN Pain Score 4-6, Start date: 04/19/16 9:20:00 CDT, Duration: 30 day, Stop date: 05/19/16 9: 19:00 ORACLE APPLICATION ARCHITECT Start Date: 04/19/16 Stop Date: 04/19/16 Status: DiscontinuedAtivan 1 mg, 0.5 mL, Route: IVP, Drug form: INJ, ONCE, Dosing Weight 116.818, kg, Priority: STAT, Start date: 04/18/16 1:37:00 CDT, Stop date: 04/18/16 1:37:00 CDT Notes: (Same as: Ativan) Start Date: 04/18/16 Stop Date: 04/18/16 Status: DiscontinuedAtivan 1 mg, 0.5 mL, Route: IVP, Drug form: INJ, ONCE, Dosing Weight 116.818, kg, PRN as needed for anxiety, Priority: STAT, Start date: 04/18/16 1:37:00 CDT Notes: (Same as: Ativan) Start Date: 04/18/16 Stop Date: 04/18/16 Status: Discontinuedbisacodyl 10 mg, 1 supp, Route: SD, Drug form: SUPP, Daily, Dosing Weight 116.818, kg, PRN Constipation, Startdate: 04/18/16 2:57:00 CDT, Duration: 30 day, Stop date: 05/18/16 2:56:00 ORACLE APPLICATION ARCHITECT Notes: (Same As: Dulcolax, Bisco-Lax) Start Date: 04/18/16 Stop Date: 04/20/16 Status: DiscontinuedceFAZolin + sodium chloride 0.9% INJ 100 mL 2 gm, Route: IVPB, Drug form: PDR/INJ, ABXQ8H, Start date: 04/19/16 16:00:00 CDT , Duration: 1 day, Stop date: 04/20/16 8:00:00 CDT Notes: (Same As: Dm Cruz) MEDICATION WASTE Product Size: 1000 mgProduct Wasted: ___ mg Start Date: 04/19/16 Stop Date: 04/20/16 Status: Completedcyclobenzaprine 10 mg oral tablet 10 mg=1 tab, PO, TID, PRN Spasm, # 30 tab, 0 Refill(s) Start Date: 04/19/16 Stop Date: 04/27/16 Status: OrderedDilaudid 1 mg, 0.5 mL, Route: IVP, Drug form: INJ, ONCE, Dosing Weight 116.818, kg, Priority: STAT, Start date: 04/18/16 5:55:00 CDT, Stop date: 04/18/16 5:55:00 CDT Notes: (Same as: Dilaudid) Start Date: 04/18/16 Stop Date: 04/18/16 Status: CompletedDilaudid 1 mg, Route: IVP, ONCE, Dosing Weight 116.818, kg, Priority: STAT, Start date: 04/18/16 0:05:00 CDT,Stop date: 04/18/16 0:05:00 CDT Start Date: 04/18/16 Stop Date: 04/18/16 Status: Completeddocusate 100 mg, 1 cap, Route: PO, Drug form: CAP, Q12H, Dosing Weight 116.818, kg, Start date: 04/18/16 9:00:00 CDT, Duration: 30 day, Stop date: 05/17/16 21:00: 00 ORACLE APPLICATION ARCHITECT Notes: (Same as: Colace) (Do Not Crush) Start Date: 04/18/16 Stop Date: 04/20/16 Status: Discontinueddocusate sodium 100 mg oral capsule 100 mg=1 cap, PO, Q12H, # 30 cap, 0 Refill(s) Start Date: 04/19/16 Status: OrderedFlexeril 10 mg, 1 tab, Route: PO, Drug form: TAB, TID, Dosing Weight 116.818, kg, PRN Spasm, Start date: 04/19/16 11:11:00 CDT, Duration: 30 day, Stop date: 05/19/16 11:10:00 ORACLE APPLICATION ARCHITECT Notes: (Same As: Flexeril) Start Date: 04/19/16 Stop Date: 04/20/16 Status: Discontinuedhydromorphone 1 mg, Route: IVP, ONCE, Dosing Weight 116.818, kg, Priority: STAT, Start date: 04/18/16 4:15:00 CDT,Stop date: 04/18/16 4:15:00 CDT Start Date: 04/18/16 Stop Date: 04/18/16 Status: Completedinfluenza virus vaccine, inactivated 0.5 mL, Route: IM, Drug Form: SUSP, Daily, Start date: 04/19/16 9:00:00 CDT, Duration: 1 doses or times, Stop date: 04/19/16 9:00:00 CDT Notes: (Same as: Fluzone Quadrivalent, Fluarix Quadrivalent)For 3 years of age and older (0.5 mL IM)Shake well before use Start Date: 04/19/16 Stop Date: 04/19/16 Status: Completedmorphine Sulfate 2 mg, 1 mL, Route: IVP, Drug form: INJ, Q1H, Dosing Weight 116.818, kg, PRN Pain Score 7-10, Start date: 04/18/16 2:57:00 CDT, Duration: 30 day, Stop date: 05/18/16 1:56:00 ORACLE APPLICATION ARCHITECT Notes: (Same as:MORPhine Sulfate) Start Date: 04/18/16 Stop Date: 04/20/16 Status: Discontinuedondansetron 4 mg, 2 mL, Route: IVP, Drug form: INJ, Q8H, Dosing Weight 116.818, kg, PRN Nausea & Vomiting, Start date: 04/18/16 2:57:00 CDT, Duration: 30 day, Stop date: 05/18/16 2:56:00 ORACLE APPLICATION ARCHITECT Notes: (Same as: Zacarias) MEDICATION WASTE Product Size: 4 mgProduct Wasted: ___ mg Start Date: 04/18/16 Stop Date: 04/20/16 Status: DiscontinuedSaline Flush 0.9% 10 ml, Route: IVP, Drug Form: INJ, Dosing Weight 116.818, kg, PRN, PRN Line Flush, Start date: 04/18/16 2:57:00 CDT, Duration: 30 day, Stop date: 05/18/16 1 :56:00 ORACLE APPLICATION ARCHITECT Notes: Same as: BD Posiflush Sterile Start Date: 04/18/16 Stop Date: 04/20/16 Status: DiscontinuedSaline Flush 0.9% 10 ml, Route: IVP, Drug Form: INJ, Dosing Weight 116.818, kg, Q12H, Start date: 04/18/16 9:00:00 CDT, Duration: 30 day, Stop date: 05/17/16 21:00:00 ORACLE APPLICATION ARCHITECT Notes: Same as: BD Posiflush Sterile Start Date: 04/18/16 Stop Date: 04/20/16 Status: Discontinuedsenna 8.6 mg, 1 tab, Route: PO, Drug Form: TAB, Dosing Weight 116.818, kg, Q12H, Start date: 04/18/16 9:00:00 CDT, Duration: 30 day, Stop date: 05/17/16 21:00: 00 ORACLE APPLICATION ARCHITECT Notes: (Same as: Senokot) Start Date: 04/18/16 Stop Date: 04/20/16 Status: Discontinuedsugammadex 500 mg, 5 mL, Route: IV, Drug form: SOLN, ONCE, Start date: 04/19/16 10:56:00 CDT, Stop date: 04/19/16 10:56:00 CDT Notes: (Same as: Bridion) Start Date: 04/19/16 Stop Date: 04/19/16 Status: OrderedZofran 4 mg, 2 mL, Route: IVP, Drug form: INJ, ONCE, Dosing Weight 116.818, kg, Priority: STAT, Start date:04/18/16 1:37:00 CDT, Stop date: 04/18/16 1:37:00 CDT Notes: (Same as: Zofran) MEDICATION WASTE Product Size: 4 mgProduct Wasted: ___ mg Start Date: 04/18/16 Stop Date: 04/18/16 Status: Completed Results BLOOD BANK RESULTS Most recent to oldest [Reference Range]: 1 ABO/Rh O POS *Unknown* (04/19/16 3:48 AM) Antibody Scrn Negative (04/19/16 3:48 AM) ELECTROLYTES Most recent to oldest [Reference Range]: 1 Sodium Lvl [135-145 mEq/L] 139 mEq/L (04/18/16 4:20 AM) Potassium Lvl [3.5-5.1 mEq/L] 3.8 mEq/L (04/18/16 4:20 AM) Chloride Lvl [95-109 mEq/L] 105 mEq/L (04/18/16 4:20 AM) CO2 [24-32 mEq/L] 26 mEq/L (04/18/16 4:20 AM) AGAP [10.0-20.0 mEq/L] 11.8 mEq/L (04/18/16 4:20 AM) CHEM PANEL Most recent to oldest [Reference Range]: 1 Creatinine Lvl [0.50-1.40 mg/dL] 0.79 mg/dL (04/18/16 4:20 AM) eGFR 138 mL/min/1.73m2 1 *NA* (04/18/16 4:20 AM) BUN [7-22 mg/dL] 7 mg/dL (04/18/16 4:20 AM) Glucose Lvl [70-99 mg/dL] 114 mg/dL *HI* (04/18/16 4:20 AM) Calcium Lvl [8.5-10.5 mg/dL] 8.3 mg/dL *LOW* (04/18/16 4:20 AM) 1Result Comment: The eGFR is calculated using the CKD-EPI formula. In most young , healthy individualsthe eGFR will be >90 mL/min/1.73m2. The eGFR declines with age. An eGFR of 60-89 may be normal in some populations, particularly the elderly, for whom the CKD-EPI formula has not been extensively validated. Use of the eGFR is not recommended in the following populations: Individuals with unstable creatinine concentrations, including patients and those with serious co-morbid conditions. Patients with extremes in muscle mass or diet. The data above are obtained from the National Kidney Disease Education Program ( NKDEP) which additionally recommends that when the eGFR is used in patients with extremes of body mass index for purposesof drug dosing, the eGFR should be multiplied by the estimated BMI.HEMATOLOGY Most recent to oldest [Reference Range]: 1 WBC [3.7-10.4 K/CMM] 10.6 K/CMM *HI* (04/18/16 4:20 AM) RBC [4.70-6.10 M/CMM] 5.21 M/CMM (04/18/16 4:20 AM) Hgb [14.0-18.0 g/dL] 15.3 g/dL (04/18/16 4:20 AM) Hct [42.0-54.0 %] 44.2 % (04/18/16 4:20 AM) MCV [80.0-94.0 fL] 84.7 fL (04/18/16 4:20 AM) MCH [27.0-31.0 pg] 29.3 pg (04/18/16 4:20 AM) MCHC [32.0-36.0 g/dL] 34.6 g/dL (04/18/16 4:20 AM) RDW [11.5-14.5 %] 13.2 % (04/18/16 4:20 AM) Platelet [133-450 K/CMM] 202 K/CMM (04/18/16 4:20 AM) MPV [7.4-10.4 fL] 9.5 fL (04/18/16 4:20 AM) Segs [45.0-75.0 %] 83.3 % *HI* (04/18/16 4:20 AM) Lymphocytes [20.0-40.0 %] 9.9 % *LOW* (04/18/16 4:20 AM) Monocytes [2.0-12.0 %] 6.3 % (04/18/16 4:20 AM) Eosinophils [0.0-4.0 %] 0.2 % (04/18/16 4:20 AM) Basophils [0.0-1.0 %] 0.3 % (04/18/16 4:20 AM) Segs-Bands # [1.5-8.1 K/CMM] 8.8 K/CMM *HI* (04/18/16 4:20 AM) Lymphocytes # [1.0-5.5 K/CMM] 1.0 K/CMM (04/18/16 4:20 AM) Monocytes # [0.0-0.8 K/CMM] 0.7 K/CMM (04/18/16 4:20 AM) PT [12.0-14.7 seconds] 13.3 seconds (04/18/16 4:20 AM) INR [0.85-1.17] 0.99 (04/18/16 4:20 AM) PTT [22.9-35.8 seconds] 26.3 seconds (04/18/16 4:20 AM) Immunizations Not Given Vaccine Date Status Refusal Reason influenza virus vaccine, inactivated 04/19/16 Not Given Patient Refuses Procedures No data available for this section Social History Social History Type Response Smoking Status Never smoker; Exposure to Tobacco Smoke None; Cigarette Smoking Last 365 Days No; Reg Smoking Cessation Counseling No Assessment and Plan No data available for this section
--- NOTE | 2018-11-30 03:15 | ER ---
Nurse's Notes [facility] Name: Alexy Rosales Jr Age: 33 yrs Sex: Male : 1985 Arrival Date: 11/29/2018 Time: 22:50 Bed 15 Private MD: Diagnosis: Cervical spondylosis Presentation: 11/29 23:00 Presenting complaint: Patient states: started 3 days ago I'm having tingling sensation rr5 on my left arm. denies chest pain, no fever, no cough. Transition of care: patient was not received from another setting of care. Onset of symptoms was November 26, 2018. Risk Assessment: Do you want to hurt yourself or someone else? Patient reports no desire to harm self or others. Initial Sepsis Screen: Does the patient meet any 2 criteria? No. Patient's initial sepsis screen is negative. Does the patient have a suspected source of infection? No. Patient's initial sepsis screen is negative. Care prior to arrival: None. 23:00 Method Of Arrival: Ambulatory rr5 23:00 Acuity: SUE 3 rr5 Historical: - Allergies: 23:03 No Known Allergies; rr5 - Home Meds: 23:03 None [Active]; rr5 - PMHx: 23:03 Hypertension; Migraines; Vertigo; rr5 - PSHx: 23:03 neck surgery; rr5 - Immunization history:: Adult Immunizations not up to date. - Social history:: Smoking status: Patient/guardian denies using tobacco, Patient/guardian denies using alcohol, street drugs. - Ebola Screening: : Patient negative for fever greater than or equal to 101.5 degrees Fahrenheit, and additional compatible Ebola Virus Disease symptoms Patient denies exposure to infectious person Patient denies travel to an Ebola-affected area in the 21 days before illness onset. Screenin:00 Abuse screen: Denies threats or abuse. Denies injuries from another. Nutritional rr5 screening: On. Tuberculosis screening: No symptoms or risk factors identified. Fall Risk None identified. Total Lewis Fall Scale indicates No Risk (0-24 pts). Assessment: 23:05 General: Appears in no apparent distress. comfortable, Behavior is calm, cooperative, rr5 appropriate for age. Pain: Denies pain. Neuro: Level of Consciousness is awake, alert, obeys commands, Oriented to person, place, time, situation, Appropriate for age. Cardiovascular: Denies chest pain, palpitations, Capillary refill < 3 seconds Patient's skin is warm and dry. Respiratory: Airway is patent Respiratory effort is even, unlabored, Respiratory pattern is regular, symmetrical. GI: No signs and/or symptoms were reported involving the gastrointestinal system. : No signs and/or symptoms were reported regarding the genitourinary system. EENT: Derm: Skin is intact, Skin temperature is warm. Musculoskeletal: Capillary refill < 3 seconds, Range of motion: intact in all extremities, Reports tingling sensation at left arm. 11/30 00:00 Reassessment: Patient appears in no apparent distress at this time. Patient and/or rr5 family updated on plan of care and expected duration. Pain level reassessed. 00:49 Reassessment: Patient appears in no apparent distress at this time. Patient is alert, rr5 oriented x 3, equal unlabored respirations, skin warm/dry/pink. awaiting for CT scan result. no complaints made. 01:06 Reassessment: Patient appears in no apparent distress at this time. No changes from jd3 previously documented assessment. Patient and/or family updated on plan of care and expected duration. Pain level reassessed. Patient is alert, oriented x 3, equal unlabored respirations, skin warm/dry/pink. 02:06 Reassessment: Patient appears in no apparent distress at this time. No changes from jd3 previously documented assessment. Patient and/or family updated on plan of care and expected duration. Pain level reassessed. Patient is alert, oriented x 3, equal unlabored respirations, skin warm/dry/pink. 03:07 Reassessment: Patient appears in no apparent distress at this time. Patient and/or jd3 family updated on plan of care and expected duration. Pain level reassessed. Patient is alert, oriented x 3, equal unlabored respirations, skin warm/dry/pink. 03:29 Reassessment: Patient appears in no apparent distress at this time. Patient and/or jd3 family updated on plan of care and expected duration. Pain level reassessed. Patient is alert, oriented x 3, equal unlabored respirations, skin warm/dry/pink. Patient states feeling better. Vital Signs: 11/29 23:00 BP 141 / 85; Pulse 110; Resp 19; Temp 98.9; Pulse Ox 99% ; Weight 132.9 kg; Height 5 rr5 ft. 1 in. (154.94 cm); Pain 0/10; 23:36 BP 129 / 72; Pulse 103; Resp 18; Pulse Ox 99% on R/A; rr5 11/30 00:00 BP 121 / 60; Pulse 95; Resp 17; Pulse Ox 99% on R/A; rr5 00:49 BP 120 / 55; Pulse 97; Resp 15; Temp 97.4; Pulse Ox 99% ; rr5 02:07 BP 123 / 68; Pulse 79; Resp 17 S; Pulse Ox 98% on R/A; jd3 03:06 BP 126 / 81; Pulse 100; Resp 19 S; Pulse Ox 99% on R/A; jd3 11/29 23:00 Body Mass Index 55.36 (132.90 kg, 154.94 cm) rr5 ED Course: 11/29 22:50 Patient arrived in ED. am2 22:56 Atif Nichols MD is Attending Physician. pkl 22:59 Percy Ray RN is Primary Nurse. rr5 23:00 Arm band placed on. rr5 23:01 Triage completed. rr5 23:04 Patient has correct armband on for positive identification. Bed in low position. Call rr5 light in reach. Side rails up X2. Pulse ox on. NIBP on. 23:25 EKG done, by ED staff, reviewed by Atif Nichols MD. rr5 23:28 motor pool clerk on. rr5 11/30 00:22 CT C Spine In Process Unspecified. EDMS 01:07 Primary Nurse role handed off by Percy Ray, CARLOS jd3 01:07 Evan Guy RN is Primary Nurse. jd3 03:14 Booker Pereira MD is Referral Physician. pkl 03:29 No provider procedures requiring assistance completed. Patient did not have IV access jd3 during this emergency room visit. Administered Medications: No medications were administered Outcome: 03:14 Discharge ordered by . pkl 03:29 Discharged to home ambulatory, with family. jd3 03:29 Condition: stable 03:29 Discharge instructions given to patient, family, Instructed on discharge instructions, follow up and referral plans. medication usage, Demonstrated understanding of instructions, follow-up care, medications, Prescriptions given X 1. 03:30 Patient left the ED. jd3 Signatures: Dispatcher [employer] Atif Fraser MD MD pkl Moreno, Amanda am2 Davies, Jonathon, RN RN jd3 Percy Ray RN RN rr5
--- NOTE | 2018-11-30 03:15 | EDPHYS ---
Physician Documentation [facility] Name: Alexy Rosales Jr Age: 33 yrs Sex: Male : 1985 Arrival Date: 11/29/2018 Time: 22:50 Bed 15 Private MD: ED Physician Atif Nichols HPI: 11/29 23:19 This 33 yrs old Black Male presents to ER via Ambulatory with complaints of arm pkl tingling. 23:19 The complaints affect the left upper extremity. Onset: The symptoms/episode pkl began/occurred 3 day(s) ago. Patient had neck surgery 2 years from a fall. Historical: - Allergies: 23:03 No Known Allergies; rr5 - Home Meds: 23:03 None [Active]; rr5 - PMHx: 23:03 Hypertension; Migraines; Vertigo; rr5 - PSHx: 23:03 neck surgery; rr5 - Immunization history:: Adult Immunizations not up to date. - Social history:: Smoking status: Patient/guardian denies using tobacco, Patient/guardian denies using alcohol, street drugs. - Ebola Screening: : Patient negative for fever greater than or equal to 101.5 degrees Fahrenheit, and additional compatible Ebola Virus Disease symptoms Patient denies exposure to infectious person Patient denies travel to an Ebola-affected area in the 21 days before illness onset. ROS: 23:19 Eyes: Negative for injury, pain, redness, and discharge, ENT: Negative for injury, pkl pain, and discharge, Neck: Negative for injury, pain, and swelling, Cardiovascular: Negative for chest pain, palpitations, and edema, Respiratory: Negative for shortness of breath, cough, wheezing, and pleuritic chest pain, Abdomen/GI: Negative for abdominal pain, nausea, vomiting, diarrhea, and constipation, Back: Negative for injury and pain, : Negative for injury, bleeding, discharge, and swelling. 23:19 MS/extremity: Positive for paresthesias, of the left upper extremity. 23:19 Skin: Negative for rash. 23:19 Neuro: Positive for tingling, of the left upper extremity. Exam: 23:19 Head/Face: Normocephalic, atraumatic. Eyes: Pupils equal round and reactive to light, pkl extra-ocular motions intact. Lids and lashes normal. Conjunctiva and sclera are non-icteric and not injected. Cornea within normal limits. Periorbital areas with no swelling, redness, or edema. ENT: Nares patent. No nasal discharge, no septal abnormalities noted. Tympanic membranes are normal and external auditory canals are clear. Oropharynx with no redness, swelling, or masses, exudates, or evidence of obstruction, uvula midline. Mucous membranes moist. Neck: Trachea midline, no thyromegaly or masses palpated, and no cervical lymphadenopathy. Supple, full range of motion without nuchal rigidity, or vertebral point tenderness. No Meningismus. Chest/axilla: Normal chest wall appearance and motion. Nontender with no deformity. No lesions are appreciated. Cardiovascular: Regular rate and rhythm with a normal S1 and S2. No gallops, murmurs, or rubs. Normal PMI, no JVD. No pulse deficits. Respiratory: Lungs have equal breath sounds bilaterally, clear to auscultation and percussion. No rales, rhonchi or wheezes noted. No increased work of breathing, no retractions or nasal flaring. Abdomen/GI: Soft, non-tender, with normal bowel sounds. No distension or tympany. No guarding or rebound. No evidence of tenderness throughout. Back: No spinal tenderness. No costovertebral tenderness. Full range of motion. Skin: Warm, dry with normal turgor. Normal color with no rashes, no lesions, and no evidence of cellulitis. 23:19 Musculoskeletal/extremity: Extremities: grossly normal except: noted in the left upper extremity: tingling sensation . 23:19 Skin: Exam negative for rash. 23:19 Neuro: Orientation: is normal, Mentation: is normal, Cranial nerves: grossly normal, Motor: is normal, Sensation: tingling sensation left upper extremity. Vital Signs: 23:00 BP 141 / 85; Pulse 110; Resp 19; Temp 98.9; Pulse Ox 99% ; Weight 132.9 kg; Height 5 rr5 ft. 1 in. (154.94 cm); Pain 0/10; 23:36 BP 129 / 72; Pulse 103; Resp 18; Pulse Ox 99% on R/A; rr5 05/25 00:00 BP 121 / 60; Pulse 95; Resp 17; Pulse Ox 99% on R/A; rr5 00:49 BP 120 / 55; Pulse 97; Resp 15; Temp 97.4; Pulse Ox 99% ; rr5 02:07 BP 123 / 68; Pulse 79; Resp 17 S; Pulse Ox 98% on R/A; jd3 03:06 BP 126 / 81; Pulse 100; Resp 19 S; Pulse Ox 99% on R/A; jd3 11/29 23:00 Body Mass Index 55.36 (132.90 kg, 154.94 cm) rr5 MDM: 11/29 22:56 Patient medically screened. pkl 11/30 03:13 Data reviewed: vital signs, nurses notes, radiologic studies, CT scan. pkl 11/29 23:19 Order name: CT C Spine pkl 11/29 23:19 Order name: EKG; Complete Time: 23:20 pkl Administered Medications: No medications were administered Disposition: 11/30/18 03:14 Discharged to Home. Impression: Cervical spondylosis. - Condition is Stable. - Prescriptions for Diclofenac Sodium 75 mg Oral Tablet Sustained Release - take 1 tablet by ORAL route 2 times per day; 30 tablet. - Medication Reconciliation Form, Thank You Letter, Antibiotic Education, Prescription Opioid Use form. - Follow up: Booker Pereira MD; When: 2 - 3 days; Reason: Re-evaluation by your physician. - Problem is new. - Symptoms are unchanged. Signatures: Dispatcher [employer] EDCO Atif Nichols MD MD pkEvan Sin RN RN jd3 Percy Ray RN RN rr5 Corrections: (The following items were deleted from the chart) 03:30 03:14 11/30/2018 03:14 Discharged to Home. Impression: Cervical spondylosis. Condition jd3 is Stable. Forms are Medication Reconciliation Form, Thank You Letter, Antibiotic Education, Prescription Opioid Use. Follow up: Booker Pereira; When: 2 - 3 days; Reason: Re-evaluation by your physician. Problem is new. Symptoms are unchanged. pkl
[2018-11-30 03:44] VITALS: TEMP 97.4
[2018-11-30 03:46] VITALS: BP 126/81; O2SAT 99
--- NOTE | 2018-11-30 08:10 | EKG ---
Test Date: 2018-11-29 Test Time: 23:23:33 Qual Field Manager: RR MEASUREMENT RESULTS: Intervals: Rate: 95 NC: 128 QRSD: 72 QT: 334 QTc: 419 [facility]: P: 46 NC: 128 QRS: 46 T: -11 INTERPRETIVE STATEMENTS: Normal sinus rhythm Normal ECG Compared to ECG 04/17/2016 21:20:12 No significant changes Electronically Signed On 11-30-18 08:09:59 CDT by Rob Yu
--- NOTE | 2018-12-03 11:42 | RAD REPORT ---
EXAM DESCRIPTION: CT Cervical Spine Without Intravenous Contrast CLINICAL HISTORY: The patient is 33 years old and is Male; tingling sensation left upper ext remity TECHNIQUE: Axial computed tomography images of the cervical spine without intravenous contrast. Sa gittal and coronal reformatted images were created and reviewed. This CT exam was performed using o ne or more of the following dose reduction techniques: automated exposure control, adjustment of th e mA and/or kV according to patient size, and/or use of iterative reconstruction technique. COMPARISON: No relevant prior studies available. FINDINGS: VERTEBRAE: Mild straightening of the normal cervical curvature is present. The vertebral body heights and alignment are maintained. DISCS/SPINAL CANAL/NEURAL FORAMINA: Minimal intervertebral disc space narrowing is noted. Postsu rgical change of C4 and C5 on the left is present. There is no significant neural foraminal narrowing or canal stenosis. SOFT TISSUES: The soft tissues are normal. LUNG APICES: The lung apices are clear. IMPRESSION: No fracture or malalignment of the cervical spine. Minimal degenerative change. Electronically signed by: Stephany Toth MD 11/30/2018 2:45 AM CDT Due to temporary technical issues with the PACS/Fluency reporting system, reports are being signed by the in house radiologist as a courtesy to ensure prompt reporting. The interpreting radiologist is f ully responsible for the content of the report.
== END 2018-11-30 03:30 | disposition home or self-care (01) ==
LOC: ER 22:48
DX: M47.812 Spondylosis without myelopathy or radiculopathy, cervical region (principal); I10 Essential (primary) hypertension
CPT/HCPCS: 72125; 93005; 99284

== ENCOUNTER 2020-03-05 18:00 | Emergency (ER) | payer SELFPAY ==
--- OUTSIDE RECORDS SUMMARY | 2020-03-05 18:03 | XMS REPORT | Continuity of Care Document ---
:1985 Author Organization [employer] Care Team Providers Name Role Phone [facility] [employer] Unavailable Un available Problems Problem Status Onset Classification Date Comments Sourc e Date Reported FALL Active [address] CERVICAL Active [facility] STENOSIS [address] [place] [address] Migraine Resolved Problem 06/25/2016 [facility] (disorder) [facility], [facility] [place] Morbid Active Problem 06/25/2016 [facility] (disorder) Medications Medication Details Route Status Patient Ordering Order Source Instructions Provider Date Docusate Sodium 100 mg = 1 cap, Active [place] 100 MG Oral PO, Q12H, # 30 2016 Medic al Capsule cap, 0 Refill(s) Center cyclobenzaprine 10 mg = 1 tab, Active [place] 10 mg oral tablet PO, TID, PRN 2016 edical Spasm, # 30 tab, Center 0 Refill(s) ceFAZolin + Notes: (Same As: No Longer [facility] sodium chloride Ancef, Kefzol) Active 2015 edical 0.9% INJ 100 mL MEDICATION Center WASTE Product Size: 1000 mg Product Wasted: ___ mg Ancef 2 gm, Route: Inactive [facility] IVPB, [id number], 2015 Medical Dosing Weight Center 116.818, kg, Start date: 04/19/16 12:00:00 CDT, Duration: 1 day, Stop date: 04/20/16 4:00:00 CDT Flexeril Notes: (Same As: [place] Longer [place] Flexeril) Active 2016 Medical [place] sugammadex Notes: (Same as: Inactive [facility] Bridion) 2016 Medical [place] Ondansetron 4 mg, Route: Inactive [place] IVP, ONCE, 2015 Medical Dosing Weight Center 116.818, kg, PRN Nausea & Vomiting, Start date: 04/19/16 9:20:00 CDT Naloxone 0.4 mg, Route: [place] IVP, Q2MIN, 2015 Medical Dosing Weight Center 116.818, kg, PRN Narcotic Reversal, Start date: 04/19/16 9:20:00 CDT, Duration: 8 doses or times, Stop date: Limited # of times Oxycodone 5 mg, Route: PO, Inactive [place] Drug form: TAB, 2016 Medical Q4H, Dosing Center Weight 116.818, kg, PRN Pain Score 4-6, Start date: 04/19/16 9:20:00 CDT, Duration: 30 day, Stop date: 05/19/16 9:19:00 LEGAL BILLING ANALYST Hydromorphone 0.5 mg, Route: Inactive [facility] IVP, Q5Min, 2015 Medical Dosing Weight Center 116.818, kg, PRN Pain Score 7-10, Start date: 04/19/16 9:20:00 CDT, Duration: 4 doses or times, Stop date: Limited # of times Flumazenil 0.2 mg, Route: [place] IVP, PRN, Dosing 2016 Medical Weight 116.818, Center kg, PRN Benzodiazepine Reversal, Initial dose, Start date: 04/19/16 9:20:00 CDT, Duration: 30 day, Stop date: 05/19/16 8:19:00 LEGAL BILLING ANALYST influenza virus Notes: (Same as: Inactive [facility] vaccine, Fluzone 2016 [facility] inactivated Quadrivalent, [place] Fluarix Quadrivalent) For 3 years of age and older (0.5 mL IM) Shake well before use Ancef 3 gm, Route: Inactive [place] IVP, ONCE, 2015 Medical Dosing Weight Center 116.818, kg, Start date: 04/19/16 8:35:00 CDT, Stop date: 04/19/16 8:35:00 CDT Saline Flush 0.9% Notes: Same as: No Longer 04/08 [facility] BD Posiflush Active 2016 [facility] Sterile Center sennosides, ASSISTED Notes: (Same as: No Longer 04/18 [place] Senokot) Active 2016 Medical Center Docusate Notes: (Same as: No Longer [place] Colace) (Do Not Active 2015 Medical Crush) Center Dilaudid Notes: (Same as: [place] Dilaudid) 2016 Medical Center Hydromorphone 1 mg, Route: Inactive [facility] [place] IVP, ONCE, 2016 Medical Dosing Weight Center 116.818, kg, Priority: STAT, Start date: 04/18/16 4:15:00 CDT, Stop date: 04/18/16 4:15:00 CDT Saline Flush 0.9% Notes: Same as: No Longer 04/08 [facility] BD Posiflush Active 2015 [facility] Sterile Center Ondansetron Notes: (Same as: No Longer [facility] Zofran) Active 2015 Medical MEDICATION WASTE Center Product Size: 4 mg Product Wasted: ___ mg Acetaminophen 325 Notes: Do not No Longer [facility] MG / Hydrocodone exceed 4gm/day Active 2015 Medical Bitartrate 10 MG of Center Oral Tablet acetaminophen. (Same as: [place] 325) Acetaminophen Notes: Do not No Longer [facility] exceed 4 gm/day. Active 2016 Medical (Same as: Center Tylenol) Morphine Notes: (Same No Longer [facility] as:MORPhine Active 2015 Medical Sulfate) Center Bisacodyl Notes: (Same As: No Longer [facility] Dulcolax, Active 2015 Medical Bisco-Lax) Center Ativan Notes: (Same as: Inactive [place] Ativan) 2016 Medical Center Zofran Notes: (Same as: Inactive [place] Zofran) 2016 Medical MEDICATION WASTE Center Product Size: 4 mg Product Wasted: ___ mg Dilaudid 1 mg, Route: Inactive [facility] IVP, ONCE, 2015 Medical Dosing Weight Center 116.818, kg, Priority: STAT, Start date: 04/18/16 0:05:00 CDT, Stop date: 04/18/16 0:05:00 CDT Allergies, Adverse Reactions, Alerts No Known Medication Allergies Immunizations Immunization Date Given Site Status Last Updated Comments Esperanza rce influenza virus 04/19/2016 Not Given [facility] vaccine, Medical inactivated Center,M H LOI [place] nn Results Order Name Results Value Reference Date Interpretation Comments Esperanza rce Range BLOOD BANK Antibody Negative 04/19 [facility] RESULTS Scrn (04/19/16 3:48 AM) /2015 [facility] BLOOD BANK ABO/Rh O POS 04/19 [facility] RESULTS /2015 [facility] ELECTROLYTES AGAP 11.8 10.0 - 04/18 [place] 20.0 [facility] ELECTROLYTES eGFR 138 04/18 Result Comment: [facility] eGFR is Center calculated using the CKD-EPI formula. In most young, healthy individuals the eGFR will be >90 mL/min/1.73m2 . The eGFR declines with age. An eGFR of 60-89 may be normal in some populations, particularly the elderly, for whom the CKD-EPI formula has not been extensively validated. Use of the eGFR is not recommended in the following populations:< br/>
Abi viduals with unstable creatinine concentration s, including patients and those with serious co-morbid conditions.<b r/>
Patie nts with extremes in muscle mass or diet.

The data above are obtained from the National Kidney Disease Education Program (NKDEP) which additionally recommends that when the eGFR is used in patients with extremes of body mass index for purposes of drug dosing, the eGFR should be multiplied by the estimated BMI. ELECTROLYTES Glucose Lvl 114 70 - 99 04/18 [place] [facility] ELECTROLYTES Creatinine 0.79 0.50 - 04/18 [facility] Lvl 1.40 [facility] ELECTROLYTES BUN 7 7 - 22 04/18 [facility] ELECTROLYTES Potassium 3.8 3.5 - 5.1 04/18 [place] L[place] [facility] ELECTROLYTES Sodium Lvl 139 135 - 145 04/18 [place] [facility] ELECTROLYTES CO2 26 24 - 32 04/18 [facility] ELECTROLYTES Chloride Lvl 105 95 - 109 04/18 [place] [facility] ELECTROLYTES Calcium Lvl 8.3 8.5 - 10.5 04/18 [place] [facility] HEMATOLOGY Lymphocytes 1.0 1.0 - 5.5 04/18 [place] # /2015 [facility] HEMATOLOGY Monocytes # 0.7 0.0 - 0.8 04/18 [facility] HEMATOLOGY Eosinophils 0.2 0.0 - 4.0 04/18 s [facility] HEMATOLOGY Lymphocytes 9.9 20.0 - 04/18 [place] 40.0 [facility] HEMATOLOGY Monocytes 6.3 2.0 - 12.0 04/18 [facility] HEMATOLOGY Basophils 0.3 0.0 - 1.0 04/18 [facility] HEMATOLOGY Segs-Bands # 8.8 1.5 - 8.1 04/18 [facility] HEMATOLOGY Segs 83.3 45.0 - 04/18 [place] 75.0 [facility] HEMATOLOGY MPV 9.5 7.4 - 10.4 04/18 [facility] HEMATOLOGY WBC 10.6 3.7 - 10.4 04/18 [facility] HEMATOLOGY RBC 5.21 4.70 - 04/18 [place] 6.10 [facility] HEMATOLOGY Hgb 15.3 14.0 - 04/18 [place] 18.0 [facility] HEMATOLOGY MCH 29.3 27.0 - 04/18 [place] 31.0 [facility] HEMATOLOGY RDW 13.2 11.5 - 04/18 [place] 14.5 [facility] HEMATOLOGY Platelet 202 133 - 450 04/18 [facility] HEMATOLOGY Hct 44.2 42.0 - 04/18 [place] 54.0 /2015 [facility] HEMATOLOGY MCV 84.7 80.0 - 04/18 [place] 94.0 /2015 [facility] HEMATOLOGY MCHC 34.6 32.0 - 04/18 [place] 36.0 /2015 [facility] HEMATOLOGY INR 0.99 0.85 - 04/18 [place] 1.17 [facility] HEMATOLOGY PTT 26.3 22.9 - 04/18 [place] 35.8 /2015 [facility] HEMATOLOGY PT 13.3 12.0 - 04/18 [place] 14.7 [facility] Pathology Reports No Data Provided for This Section Diagnostic Reports Report Value Date Source Spine cervical 2 or 3 EXAM: XR CERVICAL SPINE 2 VIEWS 06/22/2016 [facility] DX DATE: 06/22/2016 2:19 PM LEGAL BILLING ANALYST INDICATION: Pain with radiculopathy COMPARISON: None TECHNIQUE: AP and lateral r adiographs of the cervical spine show from the skull base through C6. DISCUSSION: Vertebral body h eights, disk heights and alignment are overall preserved. Small osteophytes anteriorly at C4-C5. Left laminotomy changes are noted at C4 and C5 without complication identifie d. No prevertebral or paraspinous soft tissue ab normality is identified. IMPRESSION: 1. Minimal degenerative disc disease at C4-C5. 2. Left laminotomy changes at C4 and C5 without complication identified. Brain-Outside Consult EXAM: CT HEAD WITHOUT CONTRAST 04/18/2016 [facility] CT DATE: Study was performed at outside hospital on 04/17/2016 at 2015 hours and submitted for 2nd interpretation on 04/18/2016 1:44 AM CDT Center INDICATION: 30 years old Male patient with provi ded history of trauma. TECHNIQUE: Outside hospital noncontrast CT Scan of the head was submitted for 2nd opinion/interpretation. Multiple axial images were obtained through the head from vertex to the skull base. Axial bone a lgorithm reconstruction images were provided. COMPARISON: None. FINDINGS: No definite evidence of cere bral edema, mass effect, midline shift is seen. There is no intracranial hemorrhage. Ventricles are normal in siz e and configuration. No pathological extra-axial fluid collection is seen. Basal cisterns are well pres erved. There is no evidence of downward herniation. Calvarium is intact. Visualized paranasal sinuses are clear. Mastoid air cells are well aerated. Visualized orbits appear grossly unremarkable. IMPRESSION: 1. No acute intracranial abnormality. Outside hospital report is a vailable. Findings are in agreement with outside hospital report. These findings are in agreem ent with preliminary report made by personnel officer surgeon/president: Creator: Judy Salgado Date: Apr 18, 2016 05:12:33 Subject: No acute intracranial abnormality Spine-Outside Consult EXAM: CT THORACIC SPINE WITHOUT CONTRAST 1 [facility] CT EXAM: CT LUMBAR SPINE WITHOUT CONTRAST Center DATE: 04/18/2016 1:44 AM CDT performed 6 at 2018 hours INDICATION: Trauma. COMPARISON: None TECHNIQUE: Outside CT images of the lumbar and thoracic spine obtained at [facility] were uploaded for 2nd opinion interpretation. Axial, sagittal and coronal images are included. FINDINGS: No fracture, malal ignment or other acute bony abnormality is identified. There are posterior disc osteophyte complexes which cause bony narrowing of the spinal canal most prominent at T6-T7, T 7-T8 and T8-T9. There is mil d facet arthropathy in the lumbar spine. No soft tissue abnormality is identified. IMPRESSION: 1. No acute fracture or malalignment. 2. Posterior disc osteophyt e complexes which cause narrowing the spinal canal most prominent from T6 through T9. Spine-Outside Consult EXAM: CT THORACIC SPINE WITHOUT CONTRAST 1 [facility] CT EXAM: CT LUMBAR SPINE WITHOUT CONTRAST Center DATE: 04/18/2016 1:44 AM CDT performed 6 at 2018 hours INDICATION: Trauma. COMPARISON: None TECHNIQUE: Outside CT images of the lumbar and thoracic spine obtained at [facility] were uploaded for 2nd opinion interpretation. Axial, sagittal and coronal images are included. FINDINGS: No fracture, malal ignment or other acute bony abnormality is identified. There are posterior disc osteophyte complexes which cause bony narrowing of the spinal canal most prominent at T6-T7, T 7-T8 and T8-T9. There is mil d facet arthropathy in the lumbar spine. No soft tissue abnormality is identified. IMPRESSION: 1. No acute fracture or malalignment. 2. Posterior disc osteophyt e complexes which cause narrowing the spinal canal most prominent from T6 through T9. Spine-Outside Consult EXAM: CT CERVICAL SPINE WITHOUT CONTRAST 1 [facility] CT DATE: 04/18/2016 1:43 AM CDT performed 6 at 2015 hours. Center INDICATION: Trauma COMPARISON: None TECHNIQUE: Outside CT images of the cervical spine obtained at [facility] were uploaded for 2nd opinion interpretation. Axial, sagittal, and coronal images are included. FINDINGS: The spine is imaged from the skull bas e to the level of T2. No acute fracture or malalig nment is identified. There is ossification within the posterior longitudinal ligament at C4 and C5 which causes narrowing of the spinal canal most prominent at C5. No soft tissue abnormality is identified. IMPRESSION: 1. No acute fracture or malalignment of the cer vical spine. 2. Narrowing of the spinal canal at C5 secondary to ossification within the posterior longitudinal ligament. 3. No significant change from the outside repor t. Spine Thoracic wo EXAM: MRI THORACIC SPINE WITHOUT CONTRAST 04/08 [facility] contrast MRI DATE: 04/18/2016 at 0329 hours C enter INDICATION: Pain post trauma, extremity weakness and numbness. COMPARISON: CT 04/17/2016 TECHNIQUE: Multiplanar, mult isequence noncontrast MR imaging of the thoracic spine. IV contrast: None. FINDINGS: There is congenital narrowin g of the thoracic spine. Large posterior disc osteophytes protrude away from the endplates at T6-T7, T7-T8, T8-T9, and T9-T10 that contact and displace the spinal cord and re sult in effacement of the ve ntral thecal sac. Hyperintense signal is predominantly seen within the spinal cord at T8-T9 on T1/T2 weighted sequences traversing 3.5 cm, compatible with cord edema and areas of cord contusion. Multiple other areas of line ar high T2 signal within the cord may be artifactual. The study is low resolution as a result of a large [id number]. The paraspinal soft tissues are normal. The blad shannan is catheterized. IMPRESSION: 1. Cord compression with pr obable cord contusion, greatest at T8-T9 in the region of spondylosis. 2. Acquired on congenital spinal canal stenosis . Spine cervical wo EXAM: MRI CERVICAL SPINE WITHOUT CONTRAST 04/08 [facility] contrast MRI DATE: 04/18/2016 12:35 AM CDT Ce nter INDICATION: Pain Post Trauma COMPARISON: CT C-spine 04/17/2016 TECHNIQUE: Multiplanar, mult isequence noncontrast MR imaging of the cervical spine. IV contrast: None. FINDINGS: The cervical spine is congen itally narrowed from C3 to C6. There is no cord compression or myelomalacia. The vertebrae are normal in shape, signal intensity, and alignment. No neuroforaminal stenosis is seen. The disc heights are maintained. There is no disc bulge. The paraspinal soft tissues are normal. IMPRESSION: 1. Normal alignment of the cervical spine witho ut evidence of injury. 2. Congenital spinal canal stenosis from C3 to C6. Consultation Notes No Data Provided for This Section Discharge Summaries No Data Provided for This Section History and Physicals No Data Provided for This Section Vital Signs Vital Sign Value Date Comments Source Systolic (mm Hg) 152 04/20/2016 [facility] Diastolic (mm Hg) 90 04/20/2016 [facility] Heart Rate 86 04/20/2016 [facility] [place] [facility] Respitory Rate 18 04/20/2016 [facility] Respitory Rate 18 04/20/2016 [facility] Systolic (mm Hg) 152 04/20/2016 [facility] Diastolic (mm Hg) 88 04/20/2016 [facility] Heart Rate 98 04/20/2016 [facility] [place] [facility] Temperature Oral (F) 98.7 F 04/20/2016 [facility] Systolic (mm Hg) 121 04/20/2016 [facility] Diastolic (mm Hg) 78 04/20/2016 [facility] Respitory Rate 18 04/20/2016 [facility] Temperature Oral (F) 99.0 F 04/20/2016 [facility] Heart Rate 102 04/20/2016 [facility] Temperature Oral (F) 98.5 F 04/20/2016 [facility] Height 152.4 cm 04/18/2016 [facility] BMI Calculated 50.3 04/18/2016 [facility] Weight 116.818 04/18/2016 [facility] Encounters Location Location Encounter Encounter Reason Attending ADM CA Stat us Source Details Type Number For Provider Date Date Visit [facility] [id number] Noah 04/18 04/20 [facility] Jose 0 [facility] Out[facility] [id number] [facility]04 [facility] [id number] [facility] 06/22 [facility] Diag [id number] [facility] 06/22 06/23 [facility] Procedures No Data Provided for This Section Assessment and Plan No Data Provided for This Section Plan of Care No Data Provided for This Section Social History Social History Date Source Social History TypeResponse 06/22/2016 [facility] Smoking Status Never smoker; Ready to change: No; Cyndi rns about tobacco use in household: No; Exposure to Tobacco Smoke None; Cigarette Smoking Last 365 Days No; Reg Smoking Cessation Counseling No Social History TypeResponse 04/18/2016 [facility] Smoking Status Never smoker; Exposure to Tobacco Smoke None; Cigarette Smoking Last 365 Days No; Reg Smoking Cessation Counseling No Family History No Data Provided for This Section Advance Directives No Data Provided for This Section Functional Status No Data Provided for This Section
--- OUTSIDE RECORDS SUMMARY | 2020-03-05 18:03 | XMS REPORT | Continuity of Care Document ---
:1985 Author Organization [facility] t Address [address] [place] [address] Care Team Providers Name Role Phone Otis Oviedo Jr Attending Clinician Otis Oviedo Jr Admitting Clinician Problems Condition Condition Condition Status Onset Resolution Last Treating Co mments Source Name Details Category Date Date Treatment Clinician Date FALL Diagnosis Active 2015-072016-04-18 Mem oria 0-10 04:19:00 l FALL 00:00: Jose 00 Active 04/17/2016 [facility] CERVICAL Diagnosis Active 2015-072016-10-03 M emoria STENOSIS 0-10 15:16:00 l CERVICAL 00:00: Hai n STENOSIS 00 Active 04/17/2016 [facility] Migraine Problem Resolve 2016-06-25 Me moria (disorder) d 01:22:47 l Migraine Hai n (disorder) Resolved Problem 06/25/2016 [facility], LOI Garcia Morbid Problem Active 2016-06-25 Memor ia obesity 01:22:47 l (disorder) Morbid Herm lester obesity (disorder) Active Problem 06/25/2016 LOI Garcia Allergies, Adverse Reactions, Alerts This patient has no known allergies or adverse reactions. Social History Smoking Status Start Date Stop Date Source Social History [facility] Medications Ordered Filled Start Stop Current Ordering Indication Dosage Frequency Signature Comments Components Source Medication Medication Date Date Medication? Clinician (SIG) Name Name Docusate 2015-07 Yes 100 mg = 1 Mem oria Sodium 100 0-12 cap, PO, l MG Oral 21:56: Q12H, # 30 Herm lester Capsule 00 cap, 0 Refill(s) cyclobenzap 2015-07 Yes 10 mg = 1 M emoria rine 10 mg 0-12 tab, PO, l oral tablet 21:56: TID, PRN He rmann 00 Spasm, # 30 tab, 0 Refill(s) ceFAZolin + 2015-07 No Notes: Po maia sodium 0-12 (Same As: l chloride 21:00: Ancef, Jose 0.9% INJ 00 Kefzol) 100 mL MEDICATION WASTE Product Size: 1000 mg Product Wasted: ___ mg Ancef 2015-07 No 2 gm, Memoria 0-12 Route: l 17:00: IVPB, Jose 00 ABXQ8H, Dosing Weight 116.818, kg, Start date: 04/19/16 12:00:00 CDT, Duration: 1 day, Stop date: 04/20/16 4:00:00 CDT Flexeril 2015-07 No Notes: Memoria 0-12 (Same As: l 16:11: Flexeril) sugammadex 2015-07 Yes Notes: Memor ia 0-12 (Same as: l 15:56: [place]) Ondansetron 2015-07 No 4 mg, Memor ia 0-12 Route: l 14:20: IVP, ONCE, Jose 00 Dosing Weight 116.818, kg, PRN Nausea & Vomiting, Start date: 04/19/16 9:20:00 CDT Naloxone 2015-07 No 0.4 mg, Memori a 0-12 Route: l 14:20: IVP, [place] 00 Q2MIN, Dosing Weight 116.818, kg, PRN Narcotic Reversal, Start date: 04/19/16 9:20:00 CDT, Duration: 8 doses or times, Stop date: Limited # of times Oxycodone 2015-07 No 5 mg, Memoria 0-12 Route: PO, l 14:20: Drug form: Jose 00 TAB, Q4H, Dosing Weight 116.818, kg, PRN Pain Score 4-6, Start date: 04/19/16 9:20:00 CDT, Duration: 30 day, Stop date: 05/19/16 9:19:00 [employer] Hydromorpho 2015-07 No 0.5 mg, Mem oria ne 0-12 Route: l 14:20: IVP, Jose 00 Q5Min, Dosing Weight 116.818, kg, PRN Pain Score 7-10, Start date: 04/19/16 9:20:00 CDT, Duration: 4 doses or times, Stop date: Limited # of times Flumazenil 2015-07 No 0.2 mg, Po maia 0-12 Route: l 14:20: IVP, PRN, Jose 00 Dosing Weight 116.818, kg, PRN Benzodiaze pine Reversal, Initial dose, Start date: 04/19/16 9:20:00 CDT, Duration: 30 day, Stop date: 05/19/16 8:19:00 [employer] influenza 2015-07 No Notes: Memori a virus 0-12 (Same as: l vaccine, 14:00: Fluzone Hai n inactivated 00 Quadrivale nt, Fluarix Quadrivale nt) For 3 years of age and older (0.5 mL IM) Shake well before use Ancef 2015-07 No 3 gm, Memoria 0-12 Route: l 13:35: IVP, ONCE, Dosing Weight 116.818, kg, Start date: 04/19/16 8:35:00 CDT, Stop date: 04/19/16 8:35:00 CDT Saline 2015-07 No Notes: Memoria Flush 0.9% 0-11 Same as: l 14:00: BD Posiflush Sterile sennosides, 2015-07 No Notes: Po maia [facility] 0-11 (Same as: l 14:00: Senokot) Docusate 2015-07 No Notes: Memoria 0-11 (Same as: l 14:00: Colace) (Do Not Crush) Dilaudid 2015-07 No Notes: Memoria 0-11 (Same as: l 10:55: Dilaudid) Hydromorpho 2015-07 No 1 mg, Memor ia ne 0-11 Route: l 09:15: IVP, ONCE, Dosing Weight 116.818, kg, Priority: STAT, Start date: 04/18/16 4:15:00 CDT, Stop date: 04/18/16 4:15:00 CDT Saline 2015-07 No Notes: Memoria Flush 0.9% 0-11 Same as: l 07:57: BD [place] 00 Posiflush Sterile Ondansetron 2015-07 No Notes: Po maia 0-11 (Same as: l 07:57: Zofran) [place] 00 MEDICATION WASTE Product Size: 4 mg Product Wasted: ___ mg Acetaminoph 2015-07 No Notes: Do M emoria en 325 MG / 0-11 not exceed l Hydrocodone 07:57: 4gm/day of Jose Bitartrate 00 acetaminop 10 MG Oral hen. Tablet (Same as: [place] 325/10) Acetaminoph 2015-07 No Notes: Do M emoria en 0-11 not exceed l 07:57: 4 gm/day. Jose 00 (Same as: Tylenol) Morphine 2015-07 No Notes: Memoria 0-11 (Same l 07:57: as:MORPhin Jose 00 e Sulfate) Bisacodyl 2015-07 No Notes: Memori a 0-11 (Same As: l 07:57: Dulcolax, Jose 00 Bisco-Lax) Ativan 2015-07 No Notes: Memoria 0-11 (Same as: l 06:37: Ativan) [place] 00 Zofran 2015-07 No Notes: Memoria 0-11 (Same as: l 06:37: Zofran) [place] 00 MEDICATION WASTE Product Size: 4 mg Product Wasted: ___ mg Dilaudid 2015-07 No 1 mg, Memoria 0-11 Route: l 05:05: IVP, ONCE, [place] 00 Dosing Weight 116.818, kg, Priority: STAT, Start date: 04/18/16 0:05:00 CDT, Stop date: 04/18/16 0:05:00 CDT Vital Signs Vital Name Observation Time Observation Value Comments Source Systolic (mm Hg) 2016-04-20 12:11:00 Poulices Garcia Diastolic (mm Hg) 2016-04-20 12:11:00 Mem oriandreia Garcia Heart Rate 2016-04-20 12:11:00 [facility] [place] Respitory Rate 2016-04-20 12:11:00 Memori al [place] Respitory Rate 2016-04-20 08:17:00 Ulysses Austin Systolic (mm Hg) 2016-04-20 08:17:00 Po rial Jose Diastolic (mm Hg) 2016-04-20 08:17:00 Mem orial Jose Heart Rate 2016-04-20 08:17:00 [facility] [place] Temperature Oral (F) 2016-04-20 08:17:00 98.7 F [facility] [place] Systolic (mm Hg) 2016-04-20 04:29:00 Po rial Jose Diastolic (mm Hg) 2016-04-20 04:29:00 Mem orial Jose Respitory Rate 2016-04-20 04:29:00 Memori al Jose Temperature Oral (F) 2016-04-20 04:29:00 99.0 F [facility] [place] Heart Rate 2016-04-20 04:29:00 [facility] [place] Temperature Oral (F) 2016-04-20 00:08:00 98.5 F [facility] Jose Height 2016-04-18 04:29:00 152.4 cm [facility] [place] BMI Calculated 2016-04-18 04:29:00 Memori al Jose Weight 2016-04-18 04:29:00 [facility] Jose Procedures This patient has no known procedures. Encounters Start End Encounter Admission Attending Care Care Encounter Source Date/Time Date/Time Type Type Clinicians Facility Department ID 2016-06-22 2016-06-22 Outpatient Ivelisse [facility] [id number] 14:02:00 23:59:00 Noah 00 Otis 2016-04-17 2016-04-[address] [facility] [id number] 23:28:00 11:45:00 Noah 00 Otis Results Test Description Test Time Test Comments Results Result [facility] e Comments BLOOD BANK RESULTS 2016-04-19 Negative Memori al 08:48:00 (04/19/16 3:48 Jose AM) ELECTROLYTES 2016-04-18 11.8 [facility] 09:20:00 [place] ELECTROLYTES 2016-04-18 138 [facility] 09:20:00 [place] ELECTROLYTES 2016-04-18 114 [facility] 09:20:00 [place] ELECTROLYTES 2016-04-18 0.79 Memorial 09:20:00 Jose ELECTROLYTES 2016-04-18 7 Memorial 09:20:00 Jose ELECTROLYTES 2016-04-18 3.8 [facility] 09:20:00 [place] ELECTROLYTES 2016-04-18 139 [facility] 09:20:00 [place] ELECTROLYTES 2016-04-18 26 [facility] 09:20:00 [place] ELECTROLYTES 2016-04-18 105 [facility] 09:20:00 Jose ELECTROLYTES 2016-04-18 8.3 [facility] 09:20:00 [place] HEMATOLOGY 2016-04-18 1.0 Memorial 09:20:00 Jose HEMATOLOGY 2016-04-18 0.7 Memorial 09:20:00 [place] HEMATOLOGY 2016-04-18 0.2 Memorial 09:20:00 Jose HEMATOLOGY 2016-04-18 9.9 Memorial 09:20:00 Jose HEMATOLOGY 2016-04-18 6.3 [facility] 09:20:00 [place] HEMATOLOGY 2016-04-18 0.3 [facility] 09:20:00 [place] HEMATOLOGY 2016-04-18 8.8 [facility] 09:20:00 [place] HEMATOLOGY 2016-04-18 83.3 [facility] 09:20:00 [place] HEMATOLOGY 2016-04-18 9.5 [facility] 09:20:00 Jose HEMATOLOGY 2016-04-18 10.6 [facility] 09:20:00 [place] HEMATOLOGY 2016-04-18 5.21 [facility] 09:20:00 Jose HEMATOLOGY 2016-04-18 15.3 [facility] 09:20:00 [place] HEMATOLOGY 2016-04-18 09:20:00 Test Item Value Reference Range Interpretation Comme nts MCH (test code = MCH) 29.3 pg 27.0-31.0 [id number] 09:20:0013.2[facility] 2016-04-18 09:20:54258Oybxefqi [id number] 09:20:0044.2[facility] [id number] 09:20:0084.7[facility] MlfsebeKMXYRRBGCG5622-70-00 09:20:0034.6[facility] FbjoaroSIUZVNDELE3993-74-89 09:20:000.99[facility] [place] [id number] 09:20:00 Test Item Value Reference Range Interpretation Comments PTT (test code = PTT) 26.3 s 22.9-35.8 [id number] 09:20:00 Test Item Value Reference Range Interpretation Comments PT (test code = PT) 13.3 s 12.0-14.7 [facility]
--- NOTE | 2020-03-05 19:33 | EDPHYS ---
Physician Documentation [facility] Name: Alexy Rosales Jr Age: 34 yrs Sex: Male : 1985 Arrival Date: 03/05/2020 Time: 18:09 Bed 18 Private MD: ED Physician Marshall Pantoja HPI: 03/05 19:45 This 34 yrs old Black Male presents to ER via Ambulatory with complaints of Arm Pain. kb 19:45 The patient or guardian complains of pain. The complaints affect the left bicep and kb dorsal aspect of left forearm. Context: The problem was sustained at home, resulted from a chronic condition. Onset: The symptoms/episode began/occurred 3 day(s) ago. Treatment prior to arrival includes: no previous treatment. Modifying factors: The symptoms are alleviated by nothing. the symptoms are aggravated by nothing. Associated signs and symptoms: Pertinent positives: pain, tingling, Pertinent negatives: decreased range of motion, deformity, erythema, fever, nausea, numbness, swelling, vomiting, warmth, weakness. Severity of symptoms: At their worst the symptoms were moderate, in the emergency department the symptoms are unchanged. The patient has experienced similar episodes in the past, multiple times. The patient has not recently seen a physician. Pt reports tingling and pain down left arm that started 3 days ago. Has had this same pain and tingling multiple times in the past secondary to a prior cervical surgery. States he wanted to come in to make sure there was nothing going on with his heart. Pt has no heart history. . Historical: - Allergies: 18:33 No Known Allergies; ll2 - Home Meds: 18:33 lisinopril 20 mg Oral tab [Active]; ll2 - PMHx: 18:52 Hypertension; Migraines; Vertigo; jl7 - PSHx: 18:33 neck surgery, plates in spine; ll2 - Immunization history:: Adult Immunizations up to date. - Social history:: Smoking status: Patient denies any tobacco usage or history of. ROS: 19:44 Constitutional: Negative for fever, chills, and weight loss, ENT: Negative for injury, kb pain, and discharge, Neck: Negative for injury, pain, and swelling, Cardiovascular: Negative for chest pain, palpitations, and edema, Respiratory: Negative for shortness of breath, cough, wheezing, and pleuritic chest pain, Abdomen/GI: Negative for abdominal pain, nausea, vomiting, diarrhea, and constipation, Back: Negative for injury and pain, Skin: Negative for injury, rash, and discoloration, Neuro: Negative for headache, weakness, numbness, tingling, and seizure. 19:44 MS/extremity: Positive for pain, tingling, of the left arm. Exam: 19:43 Constitutional: This is a well developed, well nourished patient who is awake, alert, kb and in no acute distress. Head/Face: Normocephalic, atraumatic. Chest/axilla: Normal chest wall appearance and motion. Nontender with no deformity. No lesions are appreciated. Cardiovascular: Regular rate and rhythm with a normal S1 and S2. No gallops, murmurs, or rubs. Normal PMI, no JVD. No pulse deficits. Respiratory: Lungs have equal breath sounds bilaterally, clear to auscultation and percussion. No rales, rhonchi or wheezes noted. No increased work of breathing, no retractions or nasal flaring. Abdomen/GI: Soft, non-tender, with normal bowel sounds. No distension or tympany. No guarding or rebound. No evidence of tenderness throughout. Skin: Warm, dry with normal turgor. Normal color with no rashes, no lesions, and no evidence of cellulitis. MS/ Extremity: Pulses equal, no cyanosis. Neurovascular intact. Full, normal range of motion. Neuro: Awake and alert, GCS 15, oriented to person, place, time, and situation. Cranial nerves II-XII grossly intact. Motor strength 5/5 in all extremities. Sensory grossly intact. Cerebellar exam normal. Normal gait. 19:43 ECG was reviewed by the Attending Physician. Vital Signs: 18:27 BP 164 / 111; Pulse 105; Resp 14; Temp 98.6; Pulse Ox 99% on R/A; Pain 8/10; ll2 18:36 BP 164 / 111; Pulse 105; Resp 14; Temp 98.6(O); Pulse Ox 99% on R/A; Pain 8/10; ll2 18:40 BP 149 / 81; Pulse 103; Resp 14; Pulse Ox 97% on R/A; Weight 132.45 kg; Height 5 ft. 1 ll2 in. (154.94 cm); 19:30 BP 153 / 79; Pulse 111; Resp 16; Pulse Ox 98% on R/A; vc 18:40 Body Mass Index 55.17 (132.45 kg, 154.94 cm) ll2 MDM: 18:22 Patient medically screened. kb 19:42 Data reviewed: vital signs, nurses notes. Data interpreted: Pulse oximetry: on room air kb is 97 %. Interpretation: normal. Counseling: I had a detailed discussion with the patient and/or guardian regarding: the historical points, exam findings, and any diagnostic results supporting the discharge/admit diagnosis, lab results, radiology results, the need for outpatient follow up, a family practitioner, to return to the emergency department if symptoms worsen or persist or if there are any questions or concerns that arise at home. 03/05 18:46 Order name: Troponin (emerg Dept Use Only); Complete Time: 19:24 kb 03/05 18:46 Order name: Chest Single View XRAY; Complete Time: 19:43 kb 03/05 18:46 Order name: EKG; Complete Time: 18:46 kb 03/05 18:46 Order name: EKG - Nurse/Tech; Complete Time: 19:42 kb EC:43 Rate is 99 beats/min. Rhythm is regular. QRS [place] is Normal. DC interval is normal at kb 126 msec. QRS interval is normal at 70 msec. QT interval is normal at 330 msec. Administered Medications: No medications were administered Disposition: 03/05/20 19:33 Discharged to Home. Impression: Radiculopathy, cervical region. - Condition is Stable. - Discharge Instructions: Cervical Radiculopathy, [id number]. - Prescriptions for Prednisone 20 mg Oral Tablet - take 1 tablet by ORAL route once daily for 5 days; 5 tablet. Cyclobenzaprine 10 mg Oral Tablet - take 1 tablet by ORAL route every 8 hours As needed; 21 tablet. - Medication Reconciliation Form, Thank You Letter, Antibiotic Education, Prescription Opioid Use form. - Follow up: Emergency Department; When: As needed; Reason: Worsening of condition. Follow up: Private Physician; When: 2 - 3 days; Reason: Recheck today's complaints, Continuance of care, Re-evaluation by your physician. Addendum: 03/07/2020 08:49 Co-signature as Attending Physician, Marshall Pantoja MD I agree with the assessment and k dr plan of care. Signatures: Dispatcher [employer] EDMS Eduar Elana, CHANNEL SUPERVISOR-C CHANNEL SUPERVISOR-Ckb Marshall Pantoja MD MD [facility] Gregor Lujan RN RN jl7 Saskia Adler RN RN vc Jhoana Lorenzo, CARLOS RN ll2 Corrections: (The following items were deleted from the chart) 03/05 19:49 19:33 03/05/2020 19:33 Discharged to Home. Impression: Radiculopathy, cervical region. vc Condition is Stable. Forms are Medication Reconciliation Form, Thank You Letter, Antibiotic Education, Prescription Opioid Use. Follow up: Emergency Department; When: As needed; Reason: Worsening of condition. Follow up: Private Physician; When: 2 - 3 days; Reason: Recheck today's complaints, Continuance of care, Re-evaluation by your physician. kb
--- NOTE | 2020-03-05 19:33 | ER ---
Nurse's Notes [facility] Name: Alexy Rosales Jr Age: 34 yrs Sex: Male : 1985 Arrival Date: 03/05/2020 Time: 18:09 Bed 18 Private MD: Diagnosis: Radiculopathy, cervical region Presentation: 03/05 18:27 Chief complaint: Patient states: pt states, "I am having numbness and tingling in my ll2 left arm that starts in my arm pit and shoots down to my hand. I haven't had my lisinopril for the last week, and I took my BP at home and saw my pressure was 170/117 so I decided to come in." Pt states, "I finally got my lisinopril refilled and took one about 2 hours ago.". Coronavirus screen: Client denies travel out of the [place] in the last 14 days. At this time, the client does not indicate any symptoms associated with coronavirus-19. Ebola Screen: Patient negative for fever greater than or equal to 101.5 degrees Fahrenheit, and additional compatible Ebola Virus Disease symptoms. Initial Sepsis Screen: Does the patient meet any 2 criteria? No. Patient's initial sepsis screen is negative. Does the patient have a suspected source of infection? No. Patient's initial sepsis screen is negative. Risk Assessment: Do you want to hurt yourself or someone else? Patient reports no desire to harm self or others. Onset of symptoms was March 03, 2020 at 12:00. 18:27 Method Of Arrival: Ambulatory ll2 18:27 Acuity: SUE 3 ll2 Triage Assessment: 18:33 General: Appears in no apparent distress. comfortable, Behavior is calm, cooperative, ll2 appropriate for age. Pain: Complains of pain in left axilla, left tricep, left elbow, left wrist, left hand and palmar aspect of left forearm Pain radiates to left hand Pain currently is 8 out of 10 on a pain scale. Quality of pain is described as sharp, shooting, tingling, Pain began 2-3 days ago. Is continuous. EENT: No signs and/or symptoms were reported regarding the EENT system. Neuro: Level of Consciousness is awake, alert, obeys commands, Oriented to person, place, time, situation, Maintenance Supervisor 2Nd Shift are equal bilaterally Moves all extremities. Full function. Cardiovascular: Capillary refill < 3 seconds Patient's skin is warm and dry. Respiratory: Airway is patent Respiratory effort is even, unlabored, Respiratory pattern is regular, symmetrical. GI: No signs and/or symptoms were reported involving the gastrointestinal system. : No signs and/or symptoms were reported regarding the genitourinary system. Derm: Skin is intact, is healthy with good turgor, Skin is dry, Skin is pink, warm \\T\\ dry. Musculoskeletal: Circulation, motion, and sensation intact. Range of motion: intact in all extremities. Historical: - Allergies: 18:33 No Known Allergies; ll2 - Home Meds: 18:33 lisinopril 20 mg Oral tab [Active]; ll2 - PMHx: 18:52 Hypertension; Migraines; Vertigo; jl7 - PSHx: 18:33 neck surgery, plates in spine; ll2 - Immunization history:: Adult Immunizations up to date. - Social history:: Smoking status: Patient denies any tobacco usage or history of. Screenin:11 Abuse screen: Denies threats or abuse. Denies injuries from another. Nutritional jl7 screening: No deficits noted. Tuberculosis screening: No symptoms or risk factors identified. Fall Risk None identified. Assessment: 18:38 General: see triage assessment. ll2 19:30 Reassessment: Patient and/or family updated on plan of care and expected duration. Pain vc level reassessed. Patient is alert, oriented x 3, equal unlabored respirations, skin warm/dry/pink. Patient heart rate elevated, patient c/o pain, patient is asymptomatic. Vital Signs: 18:27 BP 164 / 111; Pulse 105; Resp 14; Temp 98.6; Pulse Ox 99% on R/A; Pain 8/10; ll2 18:36 BP 164 / 111; Pulse 105; Resp 14; Temp 98.6(O); Pulse Ox 99% on R/A; Pain 8/10; ll2 18:40 BP 149 / 81; Pulse 103; Resp 14; Pulse Ox 97% on R/A; Weight 132.45 kg; Height 5 ft. 1 ll2 in. (154.94 cm); 19:30 BP 153 / 79; Pulse 111; Resp 16; Pulse Ox 98% on R/A; vc 18:40 Body Mass Index 55.17 (132.45 kg, 154.94 cm) ll2 ED Course: 18:09 Patient arrived in ED. mr 18:22 Elana Witt FNP-C is [facility]. kb 18:22 Marshall Pantoja MD is Attending Physician. kb 18:27 Jhoana Lorenzo, CARLOS is Primary Nurse. ll2 18:32 Triage completed. ll2 18:37 Arm band placed on right wrist. ll2 18:37 Patient has correct armband on for positive identification. Placed in gown. Bed in low ll2 position. Call light in reach. Side rails up X 1. library monitor on. Pulse ox on. NIBP on. 19:11 Initial lab(s) drawn, by me, sent to lab. jl7 19:13 Chest Single View XRAY In Process Unspecified. EDMS 19:42 Primary Nurse role handed off by Jhoana Lorenzo, RN 19:42 Saskia Adler, CARLOS is Primary Nurse. vc 19:46 No provider procedures requiring assistance completed. Patient did not have IV access vc during this emergency room visit. Administered Medications: No medications were administered Outcome: 19:33 Discharge ordered by MD. kb 19:47 Discharged to home ambulatory. vc 19:47 Condition: good 19:47 Discharge instructions given to patient, Instructed on discharge instructions, follow up and referral plans. medication usage, Demonstrated understanding of instructions, follow-up care, medications, Prescriptions given X 2. 19:49 Patient left the ED. vc Signatures: Dispatcher [employer] EDMA Elana Witt FNP-C [facility] CENTERMihaela Hanna BirdGregor, RN RN jl7 Saskia Adler, RN RN vc Jhoana Lorenzo, CRALOS RN ll2 Corrections: (The following items were deleted from the chart) 22:39 20:00 Reassessment: Patient and/or family updated on plan of care and expected vc duration. Pain level reassessed. Patient is alert, oriented x 3, equal unlabored respirations, skin warm/dry/pink. vc
--- NOTE | 2020-03-05 19:41 | RAD REPORT ---
EXAM DESCRIPTION: RAD - Chest Single View - 03/05/2020 7:13 pm CLINICAL HISTORY: arm pain Chest pain. COMPARISON: Chest Single View dated 11/04/2017; CHEST PA AND LAT 2 VIEW dated 08/20/2014 FINDINGS: Portable technique limits examination quality. The lungs are grossly clear. The heart is normal in size. No displaced fractures. IMPRESSION: No acute intrathoracic process suspected.
--- NOTE | 2020-03-06 05:47 | EKG ---
Test Date: 2020-03-05 Test Time: 19:24:56 [facility] Agent: AMANDA MEASUREMENT RESULTS: Intervals: Rate: 99 OH: 126 QRSD: 70 QT: 330 QTc: 423 [place]: P: 22 OH: 126 QRS: -2 T: -4 INTERPRETIVE STATEMENTS: Normal sinus rhythm Normal ECG Compared to ECG 11/29/2018 23:23:33 No significant changes Electronically Signed On 03-06-20 05:45:11 CDT by Rob Yu
[2020-03-09 15:02] VITALS: TEMP 98.6
[2020-03-09 15:05] VITALS: BP 149/81; O2SAT 97
== END 2020-03-05 19:49 | disposition home or self-care (01) ==
LOC: ER 18:00
DX: M54.12 Radiculopathy, cervical region (principal); I10 Essential (primary) hypertension
CPT/HCPCS: 36415; 71045; 84484; 93005; 99284